=== PATIENT | female | born 1975 | race African-American/Black ===

== ENCOUNTER 2016-07-02 03:23 | Emergency (ER) | payer OTHER ==
[~2016-07-02] VITALS: Ht 185.4 cm; Wt 163.0 kg
[~2016-07-02 03:23] MED LIST: ALBU8.5H3 INH; ARIP5TAB7 PO; ASPI-664 PO; BENA20TA48 PO; BISA-57 PO; CIPR500T4 PO; CYCL-319 PO; DOCU-144 PO; INSU100V23 SC; LANT3I SC; LEVE-5 PO; MIRT30TA5 PO; OMEP40CA6 PO; PHEN100C PO; SIMV20TA2 PO; WARF4TAB PO
[2016-07-02 03:28] VITALS: Ht 185.4 cm; Wt 163.0 kg
--- NOTE | 2016-07-02 03:55 | ERD ---
ER Documentation Chief Complaint Date/Time DATE: 07/02/16 TIME: 03:52 Chief Complaint bib ra 90 skin tear from diaper sticky tab. from home. HPI 40-year-old female with a history of multiple sclerosis presenting with pain of the skin of her left lower quadrant. She states that she was wearing a diaper and the sticky part was stuck to her skin. She reported off and it tore the skin with it. After that she has been having burning pain in that area. The pain is superficial, nonradiating, 9 out of 10. She denies any other trauma to the area. She has no fever or chills. ROS All systems reviewed and are negative except as per history of present illness. Medications Home Meds Active Scripts Ciprofloxacin Hcl* (Ciprofloxacin Hcl*) 500 Mg Tablet, 500 MG PO BID for 10 Days , TAB Prov:BRITTNEY ROGERS 09/02/15 Levetiracetam* (Keppra*) 500 Mg Tablet, 500 MG PO BID for 28 Days, TAB Prov:MONA HARRIS MD 08/01/15 Insulin Glargine* (Lantus*) 100 Unit/Ml Soln, 10 UNIT SC HS for 28 Days, #1 VIAL Prov:MONA HARRIS MD 08/01/15 Docusate Sodium* (Colace*) 100 Mg Cap, 100 MG PO TID, #60 TAB Prov:GLADYS GONZALEZ MD 01/25/14 Bisacodyl* (Dulcolax*) 5 Mg Tabec, 10 MG PO BID, #60 TAB Prov:GLADYS GONZALEZ MD 01/25/14 Reported Medications Warfarin Sodium* (Coumadin*) 4 Mg Tablet, 8 MG PO DAILY, TAB 01/18/15 Albuterol Sulfate* (Proair HFA*) 8.5 Gm Hfa.aer.ad, 2 PUFF INH Q6H Y for WHEEZING AND SOB, INH 12/12/14 Omeprazole* (Omeprazole*) 40 Mg Capsule.dr, 40 MG PO DAILY, CAP 12/12/14 Simvastatin (Simvastatin) 20 Mg Tablet, 20 MG PO HS, TAB 12/12/14 Benazepril Hcl* (Benazepril Hcl*) 20 Mg Tablet, 20 MG PO DAILY, TAB 12/12/14 Cyclobenzaprine Hcl* (Cyclobenzaprine Hcl*) 10 Mg Tablet, 10 MG PO DAILY, TAB 01/10/14 Insulin Regular, Human* (Novolin R*) 100 U/Ml Vial, 0 SC SLIDING SCALE AC, VIAL 01/10/14 Aripiprazole* (Abilify*) 5 Mg Tab, 5 MG PO DAILY, TAB 01/10/14 Mirtazapine* (Mirtazapine*) 30 Mg Tablet, 30 MG PO DAILY, TAB 09/14/13 Phenytoin* Sodium Extended (Dilantin*) 100 Mg Capsule, 100 MG PO TID, CAP 09/09/13 Aspirin (Aspirin) 81 Mg Tablet.dr, 81 MG PO DAILY 11/04/12 Allergies Allergies: Coded Allergies: No Known Drug Allergy (Verified Allergy, Unknown, 07/30/15) PMhx/Soc History of Surgery: Yes (hysterectomy, knee surgery x 2 , hand surgery) Anesthesia Reaction: No Hx Neurological Disorder: Yes (seizure disorder) Hx Respiratory Disorders: No Hx Cardiac Disorders: Yes (htn, ) Hx Psychiatric Problems: Yes (depression, bipolar) Hx Miscellaneous Medical Probl: Yes (diabetes, MS) Hx Alcohol Use: No Hx Substance Use: No Hx Tobacco Use: No Smoking Status: Never smoker FmHx Family History: No diabetes Physical Exam Vitals Vital Signs Date Time Temp Pulse Resp B/P Pulse Ox O2 Delivery O2 Flow Rate FiO2 07/02/16 03:28 97.6 102 16 160/104 100 07/02/16 03:27 97.6 102 18 160/104 100 Physical Exam Const: Well-appearing, no distress Head: Atraumatic Eyes: Normal Conjunctiva ENT: Normal External Ears, Nose and Mouth. Neck: Full range of motion..~ No meningismus. Resp: Clear to auscultation bilaterally Cardio: Regular rate and rhythm, no murmurs Abd: Soft, non tender, non distended. Normal bowel sounds Skin: No petechiae or rashes. Superficial skin avulsion of the lateral left aspect of her hysterectomy scar with underlying fluctuant mass without any erythema or surrounding induration. Back: No midline or flank tenderness Ext: No cyanosis, or edema Neur: Awake and alert Psych: Normal Mood and Affect Results 24 hrs Current Medications Medications (Trade) Dose Ordered Sig/Nura Route PRN Reason Start Time Stop Time Status Last Admin Dose Admin Ibuprofen (Motrin) 600 mg ONCE ONCE PO 07/02/16 04:00 07/02/16 04:01 07/02/16 03:49 Procedures/MDM Patient is presenting with a skin avulsion due to adhesive tape. She was given ibuprofen for her pain. The wound was cleaned and dressed. With regard to the underlying mass that the patient has not noticed before, this may be a seroma versus a keloid. This does not look like an abscess. I doubt the fistula. However I asked the patient to follow-up with her primary care doctor within the next 2-3 days for reevaluation. She may need outpatient tests to further evaluate the mass. However this is not emergent and does not need to be done during this visit. Return precautions were given. Wound care was discussed. Patient is comfortable with the plan. She states she will call her doctor tomorrow Departure Diagnosis: Primary Impression: Avulsion of skin Condition: Stable Patient Instructions: Skin Avulsion Additional Instructions: Clean the area with soap and water twice daily. Place triple antibiotic ointment and cover with gauze. Keep the area dry otherwise. See your primary care doctor regarding the small skin mass around that area. BRITTNEE TORRES MD July 02, 2016 03:55
[2016-07-02] MEDS ORDERED: IBUPROFEN 600 MG TAB PO ONE (04:00)
[2016-07-02 04:21] VITALS: BP 147/97; PULSE 100; RESP 16; TEMP 98.6
== END 2016-07-02 04:20 | disposition home or self-care (01) ==
LOC: E/R 03:23
DX: T81.32XA Disruption of internal operation (surgical) wound, not elsewhere classified, initial encounter (principal); I10 Essential (primary) hypertension; E11.9 Type 2 diabetes mellitus without complications; Y82.8 Other medical devices associated with adverse incidents; Z79.01 Long term (current) use of anticoagulants; Z79.4 Long term (current) use of insulin; Z79.82 Long term (current) use of aspirin
CPT/HCPCS: Z7502; Z7610; 99282

== ENCOUNTER 2016-07-03 23:50 | Emergency (ER) | payer OTHER ==
[~2016-07-03] VITALS: Ht 185.4 cm; Wt 78.0 kg
[2016-07-04 00:04] VITALS: Ht 185.4 cm; Wt 78.0 kg
--- NOTE | 2016-07-04 01:06 | ERA ---
ER Documentation Chief Complaint Date/Time DATE: 07/04/16 TIME: 01:05 Chief Complaint Lower abdominal skin lesion HPI The patient is a 72-year-old female, presenting to the ER because of left lower quadrant lesion from the diaper tape yesterday. She was seen in the ER yesterday and discharged. She came back today because of minimal discharge from the skin lesion. She denies any trauma, fever, neck pain, chest pain, dyspnea. Past medical history: Hypertension, depression, seizure, bipolar, diabetes, MS Past surgical history: Hysterectomy ROS All systems reviewed and are negative except as per history of present illness. Medications Home Meds Active Scripts Clindamycin Hcl* (Clindamycin Hcl*) 300 Mg Capsule, 300 MG PO QID for 10 Days, CAP Prov:JOSUÉ JAMES MD 07/04/16 Ciprofloxacin Hcl* (Ciprofloxacin Hcl*) 500 Mg Tablet, 500 MG PO BID for 10 Days , TAB Prov:BRITTNEY ROGERS 09/02/15 Bisacodyl* (Dulcolax*) 5 Mg Tabec, 10 MG PO BID, #60 TAB Prov:GLADYS GONZALEZ MD 01/25/14 Reported Medications Warfarin Sodium* (Coumadin*) 4 Mg Tablet, 8 MG PO DAILY, TAB 01/18/15 Albuterol Sulfate* (Proair HFA*) 8.5 Gm Hfa.aer.ad, 2 PUFF INH Q6H Y for WHEEZING AND SOB, INH 12/12/14 Omeprazole* (Omeprazole*) 40 Mg Capsule.dr, 40 MG PO DAILY, CAP 12/12/14 Simvastatin (Simvastatin) 20 Mg Tablet, 20 MG PO HS, TAB 12/12/14 Benazepril Hcl* (Benazepril Hcl*) 20 Mg Tablet, 20 MG PO DAILY, TAB 12/12/14 Cyclobenzaprine Hcl* (Cyclobenzaprine Hcl*) 10 Mg Tablet, 10 MG PO DAILY, TAB 01/10/14 Insulin Regular, Human* (Novolin R*) 100 U/Ml Vial, 0 SC SLIDING SCALE AC, VIAL 01/10/14 Aripiprazole* (Abilify*) 5 Mg Tab, 5 MG PO DAILY, TAB 01/10/14 Mirtazapine* (Mirtazapine*) 30 Mg Tablet, 30 MG PO DAILY, TAB 09/14/13 Phenytoin* Sodium Extended (Dilantin*) 100 Mg Capsule, 100 MG PO TID, CAP 09/09/13 Aspirin (Aspirin) 81 Mg Tablet.dr, 81 MG PO DAILY 11/04/12 Discontinued Scripts Levetiracetam* (Keppra*) 500 Mg Tablet, 500 MG PO BID for 28 Days, TAB Prov:MONA HARRIS MD 08/01/15 Insulin Glargine* (Lantus*) 100 Unit/Ml Soln, 10 UNIT SC HS for 28 Days, #1 VIAL Prov:MONA HARRIS MD 08/01/15 Docusate Sodium* (Colace*) 100 Mg Cap, 100 MG PO TID, #60 TAB Prov:GLADYS GONZALEZ MD 01/25/14 Allergies Allergies: Coded Allergies: No Known Drug Allergy (Verified Allergy, Unknown, 07/30/15) PMhx/Soc History of Surgery: Yes (hysterectomy, knee surgery x 2 , hand surgery) Anesthesia Reaction: No Hx Neurological Disorder: Yes (seizure disorder) Hx Respiratory Disorders: No Hx Cardiac Disorders: Yes (htn, ) Hx Psychiatric Problems: Yes (depression, bipolar) Hx Miscellaneous Medical Probl: Yes (diabetes, MS) Hx Alcohol Use: No Hx Substance Use: No Hx Tobacco Use: No Smoking Status: Never smoker Physical Exam Vitals Vital Signs Date Time Temp Pulse Resp B/P Pulse Ox O2 Delivery O2 Flow Rate FiO2 07/04/16 00:04 97.9 102 18 131/91 100 07/03/16 23:55 101 18 131/91 100 Room Air Physical Exam Const: No acute distress. Head: Atraumatic. Eyes: Normal Conjunctiva. ENT: Normal External Ears, Nose and Mouth. Neck: Full range of motion. No meningismus. Resp: Clear to auscultation bilaterally. Cardio: Regular rate and rhythm, no murmurs. Abd: Soft, non distended, normal bowel sounds, non tender. Skin: No petechiae or rashes. Back: No midline or flank tenderness. Ext: No cyanosis, or edema. A small skin lesion at the left lower quadrant abdomen, minimal discharge with surrounding erythema Psych: Normal Mood and Affect. Procedures/MDM MEDICAL MAKING DECISION: The patient is a 40-year-old female, presenting with abdominal wall cellulitis, is stable for outpatient follow-up. The differential diagnoses considered include but are not limited to cellulitis , abscess Departure Diagnosis: Primary Impression: Cellulitis Condition: Good Comments She was discharged with clindamycin I discussed the findings with the patient. I advised the patient to follow-up with the primary physician in about 2-3 days, sooner if needed and return if any concern. JOSUÉ JAMES MD July 04, 2016 01:06
[2016-07-04] MEDS ORDERED: CLIN-73 PO (01:43)
[2016-07-04 02:01] VITALS: BP 113/77; PULSE 95; RESP 18; TEMP 97.9
== END 2016-07-04 01:44 | disposition home or self-care (01) ==
LOC: E/R 23:50
DX: L03.311 Cellulitis of abdominal wall (principal); I10 Essential (primary) hypertension; E11.9 Type 2 diabetes mellitus without complications; Z79.4 Long term (current) use of insulin; Z79.01 Long term (current) use of anticoagulants; Z79.82 Long term (current) use of aspirin
CPT/HCPCS: 99283

== ENCOUNTER 2016-11-30 12:35 | Inpatient (IN) | payer OTHER ==
[~2016-11-30] VITALS: Ht 185.4 cm; Wt 54.5 kg
[~2016-11-30 12:35] MED LIST changes: +CLIN-73 PO; -DOCU-144 PO; -LANT3I SC; -LEVE-5 PO
[2016-11-30 14:00] VITALS: BP 110/71; PULSE 101; RESP 18
[2016-11-30] MEDS ORDERED: DEXTROSE 5%-0.9% NACL 1,000 ML IV SCH (15:00)
[2016-11-30 15:13] LABS: BASOPHILS % 0.4 % (0.0-2.0); EOSINOPHILS % 0.5 % (0.0-7.0); HEMATOCRIT 32.2 % (37.0-47.0); HEMOGLOBIN 10.2 g/dl (12.0-16.0); LYMPHOCYTES # 1.1 10^3/ul (0.8-2.9); LYMPHOCYTES % 14.3 % (15.0-51.0); MEAN CORPUSCULAR HGB CONC 31.7 g/dl (32.0-37.0); MEAN CORPUSCULAR VOLUME 81.9 fl (82.0-101.0); MEAN PLATELET VOLUME 11.4 fl (7.4-10.4); MONOCYTE # 0.6 10^3/ul (0.3-0.9); MONOCYTES % 8.3 % (0.0-11.0); NEUTROPHIL # 5.8 10^3/ul (1.6-7.5); NEUTROPHILS % 75.8 % (39.0-77.0); PLATELET COUNT 301 10^3/UL (140-415); RED BLOOD COUNT 3.93 10^6/ul (4.20-5.40); RED CELL DISTRIBUTION WIDTH 12.9 % (11.5-14.5); WHITE BLOOD COUNT 7.6 10^3/ul (4.8-10.8)
[2016-11-30 15:29] LABS: CREATININE 1.39 mg/dl (0.44-1.00); POTASSIUM 4.9 mmol/L (3.5-5.1)
[2016-11-30] MEDS: SOD CHLORIDE 0.9% 1,000 ML IV SCH (15:52)
[2016-11-30] MEDS ORDERED: GLUCAGON 1 MG INJ IM PRN (16:00)
[2016-11-30] MEDS ORDERED: GLUCOSE GEL 15 GRAM TUBE PO PRN ×2 (16:00)
[2016-11-30] MEDS ORDERED: GLUCOSE GEL 15 GRAM TUBE BUCCAL PRN (16:00)
[2016-11-30] MEDS ORDERED: DEXTROSE 50% 50 ML SYRINGE IV PRN ×2 (16:00)
[2016-11-30] MEDS ORDERED: LIDOCAINE 1% (MPF) 5 ML VIAL SC ONE (17:00)
[2016-11-30] MEDS ORDERED: PANTOPRAZOLE 40 MG INJ IV SCH (17:00)
[2016-11-30] MEDS: INSULIN ASPART [NOVOLOG] 3 ML PEN SC SCH ×2 (18:49→21:08)
[2016-11-30] MEDS: morphine 2 MG INJ IV PRN ×2 (18:52→23:09)
[2016-11-30 19:20] VITALS: BP 145/93; RESP 18
[2016-11-30] MEDS ORDERED: SOD CHLORIDE 0.9% 100 ML ONE (19:20)
--- NOTE | 2016-11-30 19:39 | RADRPT ---
PROCEDURE: US guidance for PICC line CLINICAL INDICATION: PICC line placement TECHNIQUE: Multiple real-time images were acquired of the patient's arm utilizing a high resolutio n transducer. This was performed by the PICC line nurse for venous access. COMPARISON: None FINDINGS: Ultrasound guidance for PICC line placement. IMPRESSION: Ultrasound guidance for PICC line placement. RPTAT: AA .Alejandro Goldstein MD, MD Date Time Electronically viewed and signed by .Alejandro Goldstein MD, on 11/30/2016 19:38 .S/
--- NOTE | 2016-11-30 19:40 | RADRPT ---
PROCEDURE: XR Chest. CLINICAL INDICATION: PICC line placement TECHNIQUE: Single frontal view of the chest was obtained COMPARISON: 09/02/2015 FINDINGS: There is a new left-sided PICC line in place with its tip overlying the cavoatrial junction. The heart is normal in size. The lungs are clear. There is no pleural effusion or pneumothorax. RPTAT: AA IMPRESSION: New PICC line in appropriate position. .Alejandro Goldstein MD, MD Date Time Electronically viewed and signed by .Alejandro Goldstein MD, on 11/30/2016 19:39 .S/
--- NOTE | 2016-11-30 20:37 | QN ---
Documentation Comment [id number] MONA HARRIS MD Nov 30, 2016 20:36
[2016-11-30] MEDS: FAMOTIDINE 20 MG INJ IV SCH (21:04)
[2016-11-30] MEDS: PHENYTOIN 100 MG CAP PO SCH (21:04)
[2016-11-30] MEDS ORDERED: GABAPENTIN 100 MG CAP ONE (23:43)
[2016-11-30] MEDS: ZOLPIDEM 5 MG TAB PO PRN (23:45)
[2016-11-30] MEDS: GABAPENTIN 100 MG CAP PO SCH (23:45)
[2016-12-01 01:30] VITALS: BP 154/89; RESP 18
[2016-12-01 01:40] VITALS: BP 145/70; PULSE 85; RESP 18
[2016-12-01] MEDS: ACETAMINOPHEN 325 MG TAB PO PRN (01:40)
[2016-12-01] MEDS: morphine 2 MG INJ IV PRN ×6 (01:46→22:04)
--- NOTE | 2016-12-01 02:10 | HP ---
DATE OF ADMISSION: 11/30/2016 HISTORY OF PRESENT ILLNESS: Patient is a 41-year-old female who has a history of seizure disorder d ue to noncompliance, hyperglycemia, anemia, history of multiple sclerosis, hypertension, dyslipidemi a, history of wheelchair bound, history of DVT, history of left middle finger cellulitis, history of hypertension. Patient, at home, was on Coumadin, Keppra, Dilantin, Lantus. The patient now presen ts with poor p.o. intake and on and off abdominal pain. Denies any diarrhea or fever at this point. PAST MEDICAL HISTORY: As enumerated before. Multiple sclerosis, history of diabetes mellitus, hype rtension, dyslipidemia, wheelchair bound, history of DVT. ALLERGY HISTORY: NEGATIVE. FAMILY HISTORY: Negative. SOCIAL HISTORY: Negative right now. MEDICATION HISTORY: Patient is on: 1. Albuterol. 2. Abilify. 3. Aspirin. 4. Benazepril. 5. Bisacodyl. 6. Cipro. 7. Clindamycin. 8. Cyclobenzaprine. 9. Insulin. 10. Mirtazapine. 11. Omeprazole. 12. Dilantin. 13. Simvastatin. 14. Coumadin. REVIEW OF SYSTEMS: HEENT: Unremarkable. RESPIRATORY: Unremarkable. CARDIOVASCULAR: Unremarkable. ABDOMEN: As mentioned above. EXTREMITIES: Unremarkable. CENTRAL NERVOUS SYSTEM: Unremarkable. PHYSICAL EXAMINATION: GENERAL: The patient is awake, alert. VITALS: Stable. HEAD: Atraumatic, normocephalic. Pupils equal, reactive to light. NECK: Supple. No JVD. LUNGS: Clear. CARDIOVASCULAR: S1, S2 normal. ABDOMEN: Soft, nontender. Bowel sounds present. No palpable mass. EXTREMITIES: No cyanosis, clubbing or edema. CENTRAL NERVOUS SYSTEM: The patient is awake, alert. The patient has mild weakness of both upper a nd lower extremities. LABORATORY DATA: Hematocrit 32.2, sodium 133. IMPRESSION: 1. Poor p.o. intake. 2. Abdominal pain. 3. Hyponatremia. 4. Acute kidney injury. 5. Anemia. PLAN: Continue sliding scale, diabetic diet, IV fluid. Continue home medication. Orders were done . Dictated By: MONA ROBERTSON/BENJIE Conf#: [id number] DID#: [id number]
[2016-12-01] MEDS: ACCU-CHEK XX SCH (02:26)
[2016-12-01 08:31] VITALS: BP 121/78; RESP 16
[2016-12-01] MEDS: BISACODYL (EC) 5 MG TAB PO SCH ×2 (09:00→20:21)
[2016-12-01] MEDS: SOD CHLORIDE 0.9% 1,000 ML IV SCH ×2 (09:02→22:04)
[2016-12-01] MEDS: FAMOTIDINE 20 MG INJ IV SCH ×2 (09:03→20:22)
[2016-12-01] MEDS: PHENYTOIN 100 MG CAP PO SCH ×3 (09:03→20:22)
[2016-12-01] MEDS: SERTRALINE 50 MG TAB PO SCH (09:03)
[2016-12-01] MEDS: INSULIN ASPART [NOVOLOG] 3 ML PEN SC SCH ×4 (09:22→21:00)
[2016-12-01] MEDS: ASPIRIN (EC) 81 MG TAB PO SCH (09:35)
[2016-12-01] MEDS: MIRTAZAPINE 15 MG TAB PO SCH (09:36)
[2016-12-01] MEDS: CYCLOBENZAPRINE 10 MG TAB PO SCH (09:36)
[2016-12-01] MEDS: ARIPIPRAZOLE 5 MG TAB PO SCH (09:36)
[2016-12-01 09:51] LABS: INR 1.14; PROTIME 14.6 Sec (12.2-14.2); PT RATIO 1.1
[2016-12-01] MEDS ORDERED: ALBUTEROL 18 GM INHALER INH PRN (10:00)
[2016-12-01 16:15] VITALS: BP 132/85; RESP 20
[2016-12-01 18:05] VITALS: Ht 185.4 cm; Wt 54.5 kg
--- NOTE | 2016-12-01 18:06 | PN ---
Date/Time of Note Date/Time of Note DATE: 12/01/16 TIME: 18:04 Assessment/Plan VTE Prophylaxis VTE Prophylaxis Intervention: other Lines/Catheters IV Catheter Type (from Nrsg): PICC Line Central line still needed: Yes Urinary Cath still in place: No Assessment/Plan Chief Complaint/Hosp Course IMPRESSION: 1. Poor p.o. intake. 2. Abdominal pain. 3. Hyponatremia. 4. Acute kidney injury. 5. Anemia. 6 HX DVT PLAN CK LABS Problems: Subjective 24 Hr Interval Summary Respiratory: no complaints Gastrointestinal: decreased appetite Exam/Review of Systems Vital Signs Vitals Vital Signs Date Time Temp Pulse Resp B/P Pulse Ox O2 Delivery O2 Flow Rate FiO2 12/01/16 16:15 98.4 97 20 132/85 98 12/01/16 01:40 Room Air Intake and Output 11/30/16 11/30/16 12/01/16 15:00 23:00 07:00 Intake Total 315 ml 420 ml Balance 315 ml 420 ml Exam Neck: supple Respiratory: clear to auscultation Cardiovascular: regular rate and rhythm Gastrointestinal: soft Musculoskeletal: nl extremities to inspection Results Result Diagram: 11/30/16 1501 11/30/16 1501 Results 24 hrs Laboratory Tests Test 11/30/16 21:02 12/01/16 01:42 12/01/16 08:27 12/01/16 09:19 Bedside Glucose 285 H 205 189 Prothrombin Time 14.6 H Prothrombin Time Ratio 1.1 INR International Normalized Ratio 1.14 Test 12/01/16 12:38 12/01/16 14:19 12/01/16 17:29 Bedside Glucose 236 H 231 H Hemoglobin A1c 9.0 H Medications Medications Current Medications Influenza Virus Vaccine (Fluzone) 0.5 ml ONCE ONCE IM* ; Start 12/02/16 at 09: 00; Stop 12/02/16 at 09:01 Acetaminophen 650 mg 650 mg Q6H PRN PO PAIN AND OR ELEVATED TEMP Last administered on 12/01/16 01:40; Admin Dose 650 MG; Start 11/30/16 at 15:00 Sodium Chloride (NS) 1,000 ml @ 75 mls/hr [id number] IV Last administered on 09:02; Admin Dose 75 MLS/HR; Start 11/30/16 at 16:00 Insulin Glargine (Lantus) 20 unit HS SC ; Start 12/01/16 at 21:00 Diagnostic Test (Pha) (Accu-Chek) 1 ea 02 XX Last administered on 12/01/16 02 :26; Admin Dose 1 EA; Start 12/01/16 at 02:00 Phenytoin (Dilantin) 100 mg TID PO Last administered on 12/01/16 13:13; Admin Dose 100 MG; Start 11/30/16 at 21:00 Miscellaneous Information 1 ea NOTE XX ; Start 11/30/16 at 16:00 Glucose (Glutose) 15 gm Q15M PRN PO DECREASED GLUCOSE; Start 11/30/16 at 16:00 Glucose (Glutose) 22.5 gm Q15M PRN PO DECREASED GLUCOSE; Start 11/30/16 at 16: 00 Dextrose (D50w Syringe) 25 ml Q15M PRN IV DECREASED GLUCOSE; Start 11/30/16 at 16:00 Dextrose (D50w Syringe) 50 ml Q15M PRN IV DECREASED GLUCOSE; Start 11/30/16 at 16:00 Glucagon (Glucagen) 1 mg Q15M PRN IM DECREASED GLUCOSE; Start 11/30/16 at 16:00 Glucose (Glutose) 15 gm Q15M PRN BUCCAL DECREASED GLUCOSE; Start 11/30/16 at 16 :00 Morphine Sulfate (morphine) 2 mg Q4H PRN IV PAIN LEVEL 4-7 Last administered on 12/01/16 17:31; Admin Dose 2 MG; Start 11/30/16 at 16:00 Famotidine (Pepcid Iv) 20 mg BID IV Last administered on 12/01/16 09:03; Admin Dose 20 MG; Start 11/30/16 at 21:00 IV Flush (NS 10 ml) 10 ml PRN PRN IV IV PROTOCOL; Start 11/30/16 at 19:30 Sertraline HCl (Zoloft) 25 mg DAILY PO Last administered on 12/01/16 09:03; Admin Dose 25 MG; Start 12/01/16 at 09:00 Gabapentin (Neurontin) 200 mg HS PO Last administered on 11/30/16 23:45; Admin Dose 200 MG; Start 12/01/16 at 21:00 Aripiprazole (Abilify) 5 mg DAILY PO Last administered on 12/01/16 09:36; Admin Dose 5 MG; Start 12/01/16 at 09:00 Aspirin (Halfprin) 81 mg DAILY PO Last administered on 12/01/16 09:35; Admin Dose 81 MG; Start 12/01/16 at 09:00 Bisacodyl (Dulcolax) 10 mg BID PO ; Start 12/01/16 at 09:00 Cyclobenzaprine HCl (Flexeril) 10 mg DAILY PO Last administered on 12/01/16 09:36; Admin Dose 10 MG; Start 12/01/16 at 09:00 Mirtazapine (Remeron) 30 mg DAILY PO Last administered on 12/01/16 09:36; Admin Dose 30 MG; Start 12/01/16 at 09:00 MONA HARRIS MD Dec 01, 2016 18:06
[2016-12-01] MEDS: GABAPENTIN 100 MG CAP PO SCH (20:21)
[2016-12-01] MEDS: INSULIN GLARGINE [LANtus] 3 ML PEN SC SCH (20:25)
[2016-12-01 22:10] VITALS: BP 150/84; RESP 20
[2016-12-02 02:00] VITALS: BP 143/78; RESP 20
[2016-12-02] MEDS: ACCU-CHEK XX SCH (02:00)
[2016-12-02] MEDS: morphine 2 MG INJ IV PRN ×4 (04:42→20:09)
[2016-12-02 06:33] LABS: ALBUMIN 2.6 g/dl (3.3-4.9); ALBUMIN/GLOBULIN RATIO 0.68; CALCIUM 7.9 mg/dl (8.4-10.2); CREATININE 0.88 mg/dl (0.44-1.00); POTASSIUM 3.8 mmol/L (3.5-5.1); TOTAL PROTEIN 6.4 g/dl (6.1-8.1)
[2016-12-02 07:00] VITALS: BP 119/73; RESP 18
[2016-12-02] MEDS: INSULIN ASPART [NOVOLOG] 3 ML PEN SC SCH ×4 (07:50→21:00)
[2016-12-02] MEDS: SERTRALINE 50 MG TAB PO SCH (08:31)
[2016-12-02] MEDS: PHENYTOIN 100 MG CAP PO SCH ×3 (08:31→21:26)
[2016-12-02] MEDS: CYCLOBENZAPRINE 10 MG TAB PO SCH (08:31)
[2016-12-02] MEDS: ASPIRIN (EC) 81 MG TAB PO SCH (08:31)
[2016-12-02] MEDS: ARIPIPRAZOLE 5 MG TAB PO SCH (08:32)
[2016-12-02] MEDS: MIRTAZAPINE 15 MG TAB PO SCH (08:32)
[2016-12-02] MEDS: BISACODYL (EC) 5 MG TAB PO SCH ×2 (09:00→21:00)
[2016-12-02] MEDS ORDERED: INFLUENZA VIRUS VACCINE 0.5 ML SYG IM* ONE (09:00)
[2016-12-02] MEDS: ENOXAPARIN 40 MG/0.4 ML SYG SC SCH (09:25)
[2016-12-02] MEDS: FAMOTIDINE 20 MG INJ IV SCH (10:21)
[2016-12-02] MEDS: SOD CHLORIDE 0.9% 1,000 ML IV SCH (12:23)
[2016-12-02 14:00] VITALS: BP 119/82; RESP 20
--- NOTE | 2016-12-02 20:30 | PN ---
Date/Time of Note Date/Time of Note DATE: 12/02/16 TIME: 20:29 Assessment/Plan VTE Prophylaxis VTE Prophylaxis Intervention: other Lines/Catheters IV Catheter Type (from Nrs): PICC Line Central line still needed: Yes Urinary Cath still in place: No Assessment/Plan Chief Complaint/Hosp Course IMPRESSION: 1. Poor p.o. intake.BETTER 2. Abdominal pain.BETTER 3. Hyponatremia. 4. Acute kidney injury.BETTER 5. Anemia. 6 HX DVT PLAN IV FLUID PT OT Problems: Subjective 24 Hr Interval Summary Respiratory: no complaints Cardiovascular: no complaints Neurologic: other (WEAKNESS=) Exam/Review of Systems Vital Signs Vitals Vital Signs Date Time Temp Pulse Resp B/P Pulse Ox O2 Delivery O2 Flow Rate FiO2 12/02/16 14:00 99.2 93 20 119/82 98 12/01/16 01:40 Room Air Intake and Output 12/01/16 12/01/16 12/02/16 15:00 23:00 07:00 Intake Total 1440 ml 1100 ml Output Total 800 ml Balance 1440 ml 300 ml Exam Neck: supple Respiratory: clear to auscultation Cardiovascular: regular rate and rhythm Gastrointestinal: bowel sounds (+), soft Neurological: other (NO CHANGE) Results Result Diagram: 11/30/16 1501 12/02/16 0511 Results 24 hrs Laboratory Tests Test 12/02/16 05:11 12/02/16 08:26 12/02/16 09:07 12/02/16 12:26 Sodium Level 144 Potassium Level 3.8 Chloride Level 113 H Carbon Dioxide Level 25 Anion Gap 10 # Blood Urea Nitrogen 20 Creatinine 0.88 Glucose Level 64 #L Calcium Level 7.9 L Total Bilirubin 0.0 L Direct Bilirubin 0.00 Indirect Bilirubin 0.0 Aspartate Amino Transf (AST/SGOT) 14 L Alanine Aminotransferase (ALT/SGPT) 27 Alkaline Phosphatase 162 H Total Protein 6.4 Albumin 2.6 L Globulin 3.80 H Albumin/Globulin Ratio 0.68 Bedside Glucose 59 L 109 82 Test 12/02/16 17:45 Bedside Glucose 96 Medications Medications Current Medications Acetaminophen 650 mg 650 mg Q6H PRN PO PAIN AND OR ELEVATED TEMP Last administered on 12/01/16t 01:40; Admin Dose 650 MG; Start 11/30/16 at 15:00 Sodium Chloride (NS) 1,000 ml @ 75 mls/hr [id number] IV Last administered on 12:23; Admin Dose 75 MLS/HR; Start 11/30/16 at 16:00 Insulin Glargine (Lantus) 20 unit HS SC Last administered on 12/01/16 20:25; Admin Dose 20 UNIT; Start 12/01/16 at 21:00 Diagnostic Test (Pha) (Accu-Chek) 1 ea 02 XX Last administered on 12/01/16 02 :26; Admin Dose 1 EA; Start 12/01/16 at 02:00 Phenytoin (Dilantin) 100 mg TID PO Last administered on 12/02/16 14:24; Admin Dose 100 MG; Start 11/30/16 at 21:00 Miscellaneous Information 1 ea NOTE XX ; Start 11/30/16 at 16:00 Glucose (Glutose) 15 gm Q15M PRN PO DECREASED GLUCOSE; Start 11/30/16 at 16:00 Glucose (Glutose) 22.5 gm Q15M PRN PO DECREASED GLUCOSE; Start 11/30/16 at 16: 00 Dextrose (D50w Syringe) 25 ml Q15M PRN IV DECREASED GLUCOSE; Start 11/30/16 at 16:00 Dextrose (D50w Syringe) 50 ml Q15M PRN IV DECREASED GLUCOSE; Start 11/30/16 at 16:00 Glucagon (Glucagen) 1 mg Q15M PRN IM DECREASED GLUCOSE; Start 11/30/16 at 16:00 Glucose (Glutose) 15 gm Q15M PRN BUCCAL DECREASED GLUCOSE; Start 11/30/16 at 16 :00 Morphine Sulfate (morphine) 2 mg Q4H PRN IV PAIN LEVEL 4-7 Last administered on 12/02/16 20:09; Admin Dose 2 MG; Start 11/30/16 at 16:00 IV Flush (NS 10 ml) 10 ml PRN PRN IV IV PROTOCOL; Start 11/30/16 at 19:30 Sertraline HCl (Zoloft) 25 mg DAILY PO Last administered on 12/02/16 08:31; Admin Dose 25 MG; Start 12/01/16 at 09:00 Gabapentin (Neurontin) 200 mg HS PO Last administered on 12/01/16 20:21; Admin Dose 200 MG; Start 12/01/16 at 21:00 Aripiprazole (Abilify) 5 mg DAILY PO Last administered on 12/02/16 08:32; Admin Dose 5 MG; Start 12/01/16 at 09:00 Aspirin (Halfprin) 81 mg DAILY PO Last administered on 12/02/16 08:31; Admin Dose 81 MG; Start 12/01/16 at 09:00 Bisacodyl (Dulcolax) 10 mg BID PO Last administered on 12/01/16 20:21; Admin Dose 10 MG; Start 12/01/16 at 09:00 Cyclobenzaprine HCl (Flexeril) 10 mg DAILY PO Last administered on 12/02/16 08:31; Admin Dose 10 MG; Start 12/01/16 at 09:00 Mirtazapine (Remeron) 30 mg DAILY PO Last administered on 12/02/16 08:32; Admin Dose 30 MG; Start 12/01/16 at 09:00 Enoxaparin Sodium (Lovenox) 40 mg DAILY SC Last administered on 12/02/16 09: 25; Admin Dose 40 MG; Start 12/02/16 at 09:00 Pantoprazole (Protonix Tab) 40 mg DAILY@06 PO ; Start 12/03/16 at 06:00 MONA HARRIS MD Dec 02, 2016 20:30
[2016-12-02 20:45] VITALS: BP 145/87; RESP 20
[2016-12-02] MEDS: GABAPENTIN 100 MG CAP PO SCH (21:26)
[2016-12-02] MEDS: INSULIN GLARGINE [LANtus] 3 ML PEN SC SCH (21:32)
[2016-12-03] MEDS: morphine 2 MG INJ IV PRN ×7 (00:03→22:31)
[2016-12-03] MEDS: SOD CHLORIDE 0.9% 1,000 ML IV SCH ×2 (00:05→13:06)
[2016-12-03] MEDS: ACCU-CHEK XX SCH (02:00)
[2016-12-03 02:10] VITALS: BP 142/92; RESP 18
[2016-12-03] MEDS: PANTOPRAZOLE (EC) 40 MG TAB PO SCH (06:04)
[2016-12-03] MEDS: INSULIN ASPART [NOVOLOG] 3 ML PEN SC SCH ×4 (07:50→21:00)
[2016-12-03 08:12] VITALS: BP 124/80; RESP 18
[2016-12-03] MEDS: BISACODYL (EC) 5 MG TAB PO SCH ×2 (09:00→20:44)
[2016-12-03] MEDS: CYCLOBENZAPRINE 10 MG TAB PO SCH (09:30)
[2016-12-03] MEDS: ARIPIPRAZOLE 5 MG TAB PO SCH (09:31)
[2016-12-03] MEDS: ASPIRIN (EC) 81 MG TAB PO SCH (09:32)
[2016-12-03] MEDS: PHENYTOIN 100 MG CAP PO SCH ×3 (09:33→20:32)
[2016-12-03] MEDS: SERTRALINE 50 MG TAB PO SCH (09:33)
[2016-12-03] MEDS: MIRTAZAPINE 15 MG TAB PO SCH (09:33)
[2016-12-03] MEDS: ENOXAPARIN 40 MG/0.4 ML SYG SC SCH (09:37)
[2016-12-03 14:36] VITALS: BP 110/76; RESP 18
--- NOTE | 2016-12-03 17:47 | PN ---
Date/Time of Note Date/Time of Note DATE: 12/03/16 TIME: 17:46 Assessment/Plan VTE Prophylaxis VTE Prophylaxis Intervention: other Lines/Catheters IV Catheter Type (from Nrs): PICC Line Central line still needed: Yes Urinary Cath still in place: Yes Reason Cath still needed: other (indicate) Assessment/Plan Chief Complaint/Hosp Course IMPRESSION: 1. Poor p.o. intake.BETTER 2. Abdominal pain.BETTER 3. Hyponatremia. 4. Acute kidney injury.BETTER 5. Anemia. 6 HX DVT PLAN IV FLUID PT OT home soon Problems: Subjective 24 Hr Interval Summary Cardiovascular: no complaints Gastrointestinal: no complaints Exam/Review of Systems Vital Signs Vitals Vital Signs Date Time Temp Pulse Resp B/P Pulse Ox O2 Delivery O2 Flow Rate FiO2 12/03/16 14:36 98.0 90 18 110/76 100 12/01/16 01:40 Room Air Intake and Output 12/02/16 12/02/16 12/03/16 15:00 23:00 07:00 Intake Total 1690 ml 1350 ml Balance 1690 ml 1350 ml Exam Respiratory: clear to auscultation Cardiovascular: regular rate and rhythm Gastrointestinal: soft Musculoskeletal: nl extremities to inspection Extremities: normal pulses Results Result Diagram: 11/30/16 1501 12/02/16 0511 Results 24 hrs Laboratory Tests Test 12/02/16 21:25 12/03/16 08:19 12/03/16 08:36 12/03/16 09:24 Bedside Glucose 114 61 L 64 L 158 Test 12/03/16 13:01 12/03/16 17:37 Bedside Glucose 106 144 Medications Medications Current Medications Acetaminophen 650 mg 650 mg Q6H PRN PO PAIN AND OR ELEVATED TEMP Last administered on 12/01/16 01:40; Admin Dose 650 MG; Start 11/30/16 at 15:00 Sodium Chloride (NS) 1,000 ml @ 75 mls/hr [id number] IV Last administered on 13:06; Admin Dose 75 MLS/HR; Start 11/30/16 at 16:00 Diagnostic Test (Pha) (Accu-Chek) 1 ea 02 XX Last administered on 12/01/16 02 :26; Admin Dose 1 EA; Start 12/01/16 at 02:00 Phenytoin (Dilantin) 100 mg TID PO Last administered on 12/03/16 13:03; Admin Dose 100 MG; Start 11/30/16 at 21:00 Miscellaneous Information 1 ea NOTE XX ; Start 11/30/16 at 16:00 Glucose (Glutose) 15 gm Q15M PRN PO DECREASED GLUCOSE; Start 11/30/16 at 16:00 Glucose (Glutose) 22.5 gm Q15M PRN PO DECREASED GLUCOSE; Start 11/30/16 at 16: 00 Dextrose (D50w Syringe) 25 ml Q15M PRN IV DECREASED GLUCOSE; Start 11/30/16 at 16:00 Dextrose (D50w Syringe) 50 ml Q15M PRN IV DECREASED GLUCOSE; Start 11/30/16 at 16:00 Glucagon (Glucagen) 1 mg Q15M PRN IM DECREASED GLUCOSE; Start 11/30/16 at 16:00 Glucose (Glutose) 15 gm Q15M PRN BUCCAL DECREASED GLUCOSE; Start 11/30/16 at 16 :00 Morphine Sulfate (morphine) 2 mg Q4H PRN IV PAIN LEVEL 4-7 Last administered on 12/03/16 14:31; Admin Dose 2 MG; Start 11/30/16 at 16:00 IV Flush (NS 10 ml) 10 ml PRN PRN IV IV PROTOCOL; Start 11/30/16 at 19:30 Sertraline HCl (Zoloft) 25 mg DAILY PO Last administered on 12/03/16 09:33; Admin Dose 25 MG; Start 12/01/16 at 09:00 Gabapentin (Neurontin) 200 mg HS PO Last administered on 12/02/16 21:26; Admin Dose 200 MG; Start 12/01/16 at 21:00 Aripiprazole (Abilify) 5 mg DAILY PO Last administered on 12/03/16 09:31; Admin Dose 5 MG; Start 12/01/16 at 09:00 Aspirin (Halfprin) 81 mg DAILY PO Last administered on 12/03/16 09:32; Admin Dose 81 MG; Start 12/01/16 at 09:00 Bisacodyl (Dulcolax) 10 mg BID PO Last administered on 12/01/16 20:21; Admin Dose 10 MG; Start 12/01/16 at 09:00 Cyclobenzaprine HCl (Flexeril) 10 mg DAILY PO Last administered on 12/03/16 09:30; Admin Dose 10 MG; Start 12/01/16 at 09:00 Mirtazapine (Remeron) 30 mg DAILY PO Last administered on 12/03/16 09:33; Admin Dose 30 MG; Start 12/01/16 at 09:00 Enoxaparin Sodium (Lovenox) 40 mg DAILY SC Last administered on 12/03/16 09: 37; Admin Dose 40 MG; Start 12/02/16 at 09:00 Pantoprazole (Protonix Tab) 40 mg DAILY@06 PO Last administered on 12/03/16 06:04; Admin Dose 40 MG; Start 12/03/16 at 06:00 Insulin Glargine (Lantus) 10 unit HS SC ; Start 12/03/16 at 21:00 MONA HARRIS MD Dec 03, 2016 17:47
[2016-12-03 20:05] VITALS: BP 124/75; RESP 18
[2016-12-03] MEDS: GABAPENTIN 100 MG CAP PO SCH (20:33)
[2016-12-03] MEDS ORDERED: INSULIN GLARGINE [LANtus] 3 ML PEN SC SCH (21:00)
[2016-12-03] MEDS: ZOLPIDEM 5 MG TAB PO PRN (22:35)
[2016-12-04 02:00] VITALS: BP 141/90; RESP 18
[2016-12-04] MEDS: ACCU-CHEK XX SCH (02:42)
[2016-12-04] MEDS: morphine 2 MG INJ IV PRN ×6 (02:51→23:12)
[2016-12-04] MEDS: SOD CHLORIDE 0.9% 1,000 ML IV SCH ×3 (03:37→17:27)
[2016-12-04] MEDS: PANTOPRAZOLE (EC) 40 MG TAB PO SCH (06:19)
[2016-12-04 07:48] VITALS: BP 129/82; PULSE 105; RESP 16
[2016-12-04] MEDS: INSULIN ASPART [NOVOLOG] 3 ML PEN SC SCH ×4 (07:50→21:00)
[2016-12-04] MEDS: MIRTAZAPINE 15 MG TAB PO SCH (08:48)
[2016-12-04] MEDS: PHENYTOIN 100 MG CAP PO SCH ×3 (08:48→21:07)
[2016-12-04] MEDS: ARIPIPRAZOLE 5 MG TAB PO SCH (08:49)
[2016-12-04] MEDS: ASPIRIN (EC) 81 MG TAB PO SCH (08:49)
[2016-12-04] MEDS: CYCLOBENZAPRINE 10 MG TAB PO SCH (08:49)
[2016-12-04] MEDS: ENOXAPARIN 40 MG/0.4 ML SYG SC SCH (08:50)
[2016-12-04] MEDS: BISACODYL (EC) 5 MG TAB PO SCH ×2 (08:52→21:00)
[2016-12-04] MEDS: SERTRALINE 50 MG TAB PO SCH (08:52)
[2016-12-04] MEDS: INSULIN GLARGINE [LANtus] 3 ML PEN SC SCH (08:58)
[2016-12-04 11:00] VITALS: BP 134/84; PULSE 110
[2016-12-04] MEDS ORDERED: BARIUM SULF 2% 450 ML BTL (BERRY SMOOTHIE) PO SCH (13:30)
--- NOTE | 2016-12-04 13:45 | PDOCDIS ---
Discharge Instructions CONDITION Patient Condition: Stable HOME CARE INSTRUCTIONS: Special Diet: 1800 FAUSTO ACTIVITY: Activity Restrictions: Slowly Increase Activity FOLLOW UP/APPOINTMENTS Follow-up Plan f/u own pcp 1 wk see hmo asuncion or dr wu 2 wks MONA HARRIS MD Dec 04, 2016 13:45
[2016-12-04] MEDS ORDERED: LANT3I SC (13:48)
[2016-12-04] MEDS ORDERED: OMEP40CA6 PO (13:48)
[2016-12-04 14:00] VITALS: BP 142/88; RESP 18
--- NOTE | 2016-12-04 16:18 | PN ---
Date/Time of Note Date/Time of Note DATE: 12/04/16 TIME: 16:15 Assessment/Plan VTE Prophylaxis VTE Prophylaxis Intervention: other Lines/Catheters IV Catheter Type (from Nrs): PICC Line Central line still needed: Yes Urinary Cath still in place: No Assessment/Plan Chief Complaint/Hosp Course IMPRESSION: 1. Poor p.o. intake.BETTER 2. Abdominal pain.BETTER 3. Hyponatremia.better 4. Acute kidney injury.BETTER 5. Anemia. 6 HX DVT non compliance w meds PLAN PT OT home soon after seen by gi Problems: Subjective 24 Hr Interval Summary Subjective hx not possible: other (no diarrhea per r n per pt diarrhea,dr wu to see called) Cardiovascular: no complaints Gastrointestinal: no complaints Genitourinary: no complaints Exam/Review of Systems Vital Signs Vitals Vital Signs Date Time Temp Pulse Resp B/P Pulse Ox O2 Delivery O2 Flow Rate FiO2 12/04/16 14:00 98.9 107 18 142/88 99 12/01/16 01:40 Room Air Intake and Output 12/03/16 12/03/16 12/04/16 15:00 23:00 07:00 Intake Total 1800 ml 1340 ml Balance 1800 ml 1340 ml Exam Respiratory: clear to auscultation Cardiovascular: regular rate and rhythm Gastrointestinal: soft Musculoskeletal: nl extremities to inspection Extremities: No edema Results Result Diagram: 11/30/16 1501 12/02/16 0511 Results 24 hrs Laboratory Tests Test 12/03/16 17:37 12/03/16 20:31 12/04/16 01:47 12/04/16 02:12 Bedside Glucose 144 145 66 L 55 L Test 12/04/16 02:30 12/04/16 03:01 12/04/16 03:16 12/04/16 08:47 Bedside Glucose 55 L 99 116 132 Test 12/04/16 12:42 Bedside Glucose 116 Medications Medications Current Medications Acetaminophen 650 mg 650 mg Q6H PRN PO PAIN AND OR ELEVATED TEMP Last administered on 12/01/16 01:40; Admin Dose 650 MG; Start 11/30/16 at 15:00 Sodium Chloride (NS) 1,000 ml @ 75 mls/hr [id number] IV Last administered on 03:37; Admin Dose 75 MLS/HR; Start 11/30/16 at 16:00 Diagnostic Test (Pha) (Accu-Chek) 1 ea 02 XX Last administered on 12/04/16 02 :42; Admin Dose 1 EA; Start 12/01/16 at 02:00 Phenytoin (Dilantin) 100 mg TID PO Last administered on 12/04/16 12:42; Admin Dose 100 MG; Start 11/30/16 at 21:00 Miscellaneous Information 1 ea NOTE XX ; Start 11/30/16 at 16:00 Glucose (Glutose) 15 gm Q15M PRN PO DECREASED GLUCOSE; Start 11/30/16 at 16:00 Glucose (Glutose) 22.5 gm Q15M PRN PO DECREASED GLUCOSE; Start 11/30/16 at 16: 00 Dextrose (D50w Syringe) 25 ml Q15M PRN IV DECREASED GLUCOSE; Start 11/30/16 at 16:00 Dextrose (D50w Syringe) 50 ml Q15M PRN IV DECREASED GLUCOSE; Start 11/30/16 at 16:00 Glucagon (Glucagen) 1 mg Q15M PRN IM DECREASED GLUCOSE; Start 11/30/16 at 16:00 Glucose (Glutose) 15 gm Q15M PRN BUCCAL DECREASED GLUCOSE Last administered on 12/04/16 02:37; Admin Dose 15 GM; Start 11/30/16 at 16:00 Morphine Sulfate (morphine) 2 mg Q4H PRN IV PAIN LEVEL 4-7 Last administered on 12/04/16 15:01; Admin Dose 2 MG; Start 11/30/16 at 16:00 IV Flush (NS 10 ml) 10 ml PRN PRN IV IV PROTOCOL; Start 11/30/16 at 19:30 Sertraline HCl (Zoloft) 25 mg DAILY PO Last administered on 12/04/16 08:52; Admin Dose 25 MG; Start 12/01/16 at 09:00 Gabapentin (Neurontin) 200 mg HS PO Last administered on 12/03/16 20:33; Admin Dose 200 MG; Start 12/01/16 at 21:00 Aripiprazole (Abilify) 5 mg DAILY PO Last administered on 12/04/16 08:49; Admin Dose 5 MG; Start 12/01/16 at 09:00 Aspirin (Halfprin) 81 mg DAILY PO Last administered on 12/04/16 08:49; Admin Dose 81 MG; Start 12/01/16 at 09:00 Bisacodyl (Dulcolax) 10 mg BID PO Last administered on 12/01/16 20:21; Admin Dose 10 MG; Start 12/01/16 at 09:00 Cyclobenzaprine HCl (Flexeril) 10 mg DAILY PO Last administered on 12/04/16 08:49; Admin Dose 10 MG; Start 12/01/16 at 09:00 Mirtazapine (Remeron) 30 mg DAILY PO Last administered on 12/04/16 08:48; Admin Dose 30 MG; Start 12/01/16 at 09:00 Enoxaparin Sodium (Lovenox) 40 mg DAILY SC Last administered on 12/04/16 08: 50; Admin Dose 40 MG; Start 12/02/16 at 09:00 Pantoprazole (Protonix Tab) 40 mg DAILY@06 PO Last administered on 12/04/16 06:19; Admin Dose 40 MG; Start 12/03/16 at 06:00 Insulin Glargine (Lantus) 5 unit DAILY@08 SC Last administered on 12/04/16 08 :58; Admin Dose 5 UNIT; Start 12/04/16 at 08:00 MONA HARRIS MD Dec 04, 2016 16:18
[2016-12-04 20:04] VITALS: BP 146/89; RESP 22
[2016-12-04] MEDS ORDERED: INSULIN GLARGINE [LANtus] 3 ML PEN SC SCH (21:00)
[2016-12-04] MEDS: GABAPENTIN 100 MG CAP PO SCH (21:07)
--- NOTE | 2016-12-04 21:19 | RADRPT ---
PROCEDURE: CT abdomen and pelvis without contrast. CLINICAL INDICATION: Diarrhea TECHNIQUE: CT scan of the abdomen and pelvis without contrast was performed and is reconstructed a t 2.5 mm contiguous axial intervals from the dome of the diaphragm to the inferior pubic rami.. The patient was scanned without intravenous contrast. Sagittal and coronal reformatted images were obt ained from the axial source images. The calculated radiation dose measures 415 mGy centimeters. The CTDI measures 7 mGy. Individualized dose optimization technique was used for the performance of this exam. This included 1. Automated exposure control. 2. Adjustment of the mA and / or kV according to the patient's size. 3. Use of iterative reconstructed technique. COMPARISON: CT abdomen pelvis July 16, 2014 FINDINGS: The lung bases are clear of any infiltrate or nodule. No effusion is seen. The liver is of normal size, contour and attenuation with no mass or ductal dilatation. Gallbladder has been removed. No splenic, adrenal or pancreatic abnormalities present. Kidneys are enlarged. The parenchyma is intact. There is moderate bilateral hydroureter nephrosis to the level of the urinary bladder. No ureteral stones are detected. Urinary bladder is severely dist ended. No bladder masses stone is present. Uterus is been removed. No adnexal mass is visualized. There is no aneurysm. No adenopathy is present. No bowel mass or obstruction is present. The appendix is normal. No phlegmon, ascites or pneumop eritoneum is visualized. The osseous structures are intact. IMPRESSION: No bowel mass or obstruction. Bilateral hydroureter nephrosis. No stone or mass. Distended urinary bladder. Recommend renal ultras ound following urination or drainage of the bladder with Barboza catheter. Post cholecystectomy. Post hysterectomy. .Bradly Luke MD, MD Date Time Electronically viewed and signed by .Bradly Luke MD, MD on 12/04/2016 21:19 .A/
[2016-12-05] MEDS: ACCU-CHEK XX SCH (02:00)
[2016-12-05 02:18] VITALS: BP 135/79; RESP 22
[2016-12-05] MEDS: morphine 2 MG INJ IV PRN ×5 (03:13→20:08)
[2016-12-05] MEDS: PANTOPRAZOLE (EC) 40 MG TAB PO SCH (06:19)
--- NOTE | 2016-12-05 07:45 | CONS ---
DATE OF ADMISSION: 11/30/2016 DATE OF CONSULTATION: TYPE OF CONSULTATION: Gastrointestinal. HISTORY OF PRESENT ILLNESS: Patient is a 41-year-old female with history of seizure disorder, nonco mpliant, hyperglycemia, multiple sclerosis, hypertension, dyslipidemia and wheelchair bound, comes t o the hospital with diarrhea and fever. Patient's appetite has been poor. She lost significant mariia ght. The diarrhea has been going on for the last 1 year. 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 PAST MEDICAL HISTORY: As described, multiple sclerosis, diabetes mellitus, hypertension, dyslipidem ia, history of DVT. FAMILY HISTORY: Negative. SOCIAL HISTORY: Negative. MEDICATIONS: All reviewed. She is on: 1. Coumadin. 2. Dilantin. 3. Omeprazole. 4. Mirtazapine. 5. Insulin. 6. Cyclobenzaprine. 7. Clindamycin. 8. Cipro. 9. Bisacodyl. 10. Aspirin. 11. Abilify. REVIEW OF SYSTEMS: Negative. PHYSICAL EXAMINATION VITALS: Stable. HEENT: Unremarkable. NECK: Supple, no thyromegaly, no lymphadenopathy. CARDIOVASCULAR: No murmur, gallop or click. LUNGS: Clear. ABDOMEN: Benign. EXTREMITIES: No edema. CENTRAL NERVOUS SYSTEM: Grossly within normal limits. She definitely has lost a lot of weight. e skin is sagging near the upper arm. LABORATORY DATA: Her hematocrit is 32. Glucose is within normal limits. Liver function normal exc ept for the elevation of alkaline phosphorus. INR was 1.1. She had a CAT scan done but we do not h ave the report. The patient had a GI procedure done on and Dr. Garcia did a colonoscopy whic h was normal and the patient's diarrhea was most probably , it was related to diabetic enteropa thy. IMPRESSION: 1. Chronic diarrhea. 2. Weight loss. 3. Anemia. 4. Multiple sclerosis. 5. Wheelchair bound. 6. Hypertension. 7. Diabetes mellitus. PLAN: At this point, is to send stool for analysis. CAT scan has been done and we will review it. The patient had a colonoscopy 2 years ago that was negative. She definitely needs a capsule endosc opy to rule out Crohn's disease. Will send stool for calprotectin and IBD serology. This will do i t as an outpatient. In the interim, the patient will be placed on Questran for diarrhea. Dictated By: SHAHLA VILLAR/BENJIE Conf#: [id number] DID#: [id number] CC: MONA HARRIS MD;*End*
[2016-12-05] MEDS: INSULIN ASPART [NOVOLOG] 3 ML PEN SC SCH ×4 (07:50→20:43)
[2016-12-05] MEDS: SOD CHLORIDE 0.9% 1,000 ML IV SCH ×2 (07:57→20:49)
[2016-12-05 08:06] VITALS: BP 137/93; RESP 22
[2016-12-05] MEDS: INSULIN GLARGINE [LANtus] 3 ML PEN SC SCH (08:42)
[2016-12-05] MEDS: ARIPIPRAZOLE 5 MG TAB PO SCH (08:43)
[2016-12-05] MEDS: MIRTAZAPINE 15 MG TAB PO SCH (08:43)
[2016-12-05] MEDS: ENOXAPARIN 40 MG/0.4 ML SYG SC SCH (08:43)
[2016-12-05] MEDS: PHENYTOIN 100 MG CAP PO SCH ×3 (08:44→20:43)
[2016-12-05] MEDS: CYCLOBENZAPRINE 10 MG TAB PO SCH (08:44)
[2016-12-05] MEDS: ASPIRIN (EC) 81 MG TAB PO SCH (08:44)
[2016-12-05] MEDS: SERTRALINE 50 MG TAB PO SCH (08:44)
[2016-12-05] MEDS: BISACODYL (EC) 5 MG TAB PO SCH ×2 (08:45→20:37)
--- NOTE | 2016-12-05 14:36 | PN ---
Date/Time of Note Date/Time of Note DATE: 12/05/16 TIME: 14:34 Assessment/Plan VTE Prophylaxis VTE Prophylaxis Intervention: other Lines/Catheters IV Catheter Type (from Nrsg): PICC Line Central line still needed: Yes Urinary Cath still in place: No Assessment/Plan Chief Complaint/Hosp Course IMPRESSION: 1. Poor p.o. intake.BETTER 2. Abdominal pain.BETTER 3. Hyponatremia.better 4. Acute kidney injury.BETTER 5. Anemia. 6 HX DVT non compliance w meds 7 u bladder distension 8 diarrhea PLAN PT OT home soon gu marcelo prn Problems: Subjective 24 Hr Interval Summary Subjective hx not possible: other (diarrhea+,no abd pain) Exam/Review of Systems Vital Signs Vitals Vital Signs Date Time Temp Pulse Resp B/P Pulse Ox O2 Delivery O2 Flow Rate FiO2 12/05/16 08:06 97.6 104 22 137/93 97 Intake and Output 12/04/16 12/04/16 12/05/16 15:00 23:00 07:00 Intake Total 2425 ml 800 ml Output Total 2 ml Balance 2425 ml 798 ml Exam Neck: supple Respiratory: clear to auscultation Cardiovascular: regular rate and rhythm Gastrointestinal: bowel sounds (+), No tender Extremities: No edema Results Result Diagram: 12/02/16 0511 Results 24 hrs Laboratory Tests Test 12/04/16 17:27 12/04/16 21:05 12/05/16 08:39 12/05/16 12:27 Bedside Glucose 77 82 84 138 Medications Medications Current Medications Acetaminophen 650 mg 650 mg Q6H PRN PO PAIN AND OR ELEVATED TEMP Last administered on 12/01/16 01:40; Admin Dose 650 MG; Start 11/30/16 at 15:00 Sodium Chloride (NS) 1,000 ml @ 75 mls/hr [id number] IV Last administered on 07:57; Admin Dose 75 MLS/HR; Start 11/30/16 at 16:00 Diagnostic Test (Pha) (Accu-Chek) 1 ea 02 XX Last administered on 12/04/16 02 :42; Admin Dose 1 EA; Start 12/01/16 at 02:00 Phenytoin (Dilantin) 100 mg TID PO Last administered on 12/05/16 12:24; Admin Dose 100 MG; Start 11/30/16 at 21:00 Miscellaneous Information 1 ea NOTE XX ; Start 11/30/16 at 16:00 Glucose (Glutose) 15 gm Q15M PRN PO DECREASED GLUCOSE; Start 11/30/16 at 16:00 Glucose (Glutose) 22.5 gm Q15M PRN PO DECREASED GLUCOSE; Start 11/30/16 at 16: 00 Dextrose (D50w Syringe) 25 ml Q15M PRN IV DECREASED GLUCOSE; Start 11/30/16 at 16:00 Dextrose (D50w Syringe) 50 ml Q15M PRN IV DECREASED GLUCOSE; Start 11/30/16 at 16:00 Glucagon (Glucagen) 1 mg Q15M PRN IM DECREASED GLUCOSE; Start 11/30/16 at 16:00 Glucose (Glutose) 15 gm Q15M PRN BUCCAL DECREASED GLUCOSE Last administered on 12/04/16 02:37; Admin Dose 15 GM; Start 11/30/16 at 16:00 Morphine Sulfate (morphine) 2 mg Q4H PRN IV PAIN LEVEL 4-7 Last administered on 12/05/16 12:25; Admin Dose 2 MG; Start 11/30/16 at 16:00 IV Flush (NS 10 ml) 10 ml PRN PRN IV IV PROTOCOL; Start 11/30/16 at 19:30 Sertraline HCl (Zoloft) 25 mg DAILY PO Last administered on 12/05/16 08:44; Admin Dose 25 MG; Start 12/01/16 at 09:00 Gabapentin (Neurontin) 200 mg HS PO Last administered on 12/04/16 21:07; Admin Dose 200 MG; Start 12/01/16 at 21:00 Aripiprazole (Abilify) 5 mg DAILY PO Last administered on 12/05/16 08:43; Admin Dose 5 MG; Start 12/01/16 at 09:00 Aspirin (Halfprin) 81 mg DAILY PO Last administered on 12/05/16 08:44; Admin Dose 81 MG; Start 12/01/16 at 09:00 Bisacodyl (Dulcolax) 10 mg BID PO Last administered on 12/01/16 20:21; Admin Dose 10 MG; Start 12/01/16 at 09:00 Cyclobenzaprine HCl (Flexeril) 10 mg DAILY PO Last administered on 12/05/16 08:44; Admin Dose 10 MG; Start 12/01/16 at 09:00 Mirtazapine (Remeron) 30 mg DAILY PO Last administered on 12/05/16 08:43; Admin Dose 30 MG; Start 12/01/16 at 09:00 Enoxaparin Sodium (Lovenox) 40 mg DAILY SC Last administered on 12/05/16 08: 43; Admin Dose 40 MG; Start 12/02/16 at 09:00 Pantoprazole (Protonix Tab) 40 mg DAILY@06 PO Last administered on 12/05/16 06:19; Admin Dose 40 MG; Start 12/03/16 at 06:00 Insulin Glargine (Lantus) 5 unit DAILY@08 SC Last administered on 12/05/16 08 :42; Admin Dose 5 UNIT; Start 12/04/16 at 08:00 Cholestyramine Resin (Questran) 1 pkt TID PO ; Start 12/05/16 at 21:00 MONA HARRIS MD Dec 05, 2016 14:36
--- NOTE | 2016-12-05 15:30 | CONS ---
Date/Time of Note Date/Time of Note DATE: 12/05/16 TIME: 15:29 Assessment/Plan Assessment/Plan Additional Assessment/Plan IMPRESSION: 1. Chronic diarrhea. 2. Weight loss. 3. Anemia. 4. Multiple sclerosis. 5. Wheelchair bound. 6. Hypertension. 7. Diabetes mellitus. PLAN: At this point, is to send stool for analysis. CAT scan has been done and we will review it. The patient had a colonoscopy 2 years ago that was negative. She definitely needs a capsule endoscopy to rule out Crohn's disease. Will send stool for calprotectin and IBD serology. This will do it as an outpatient. In the interim, the patient will be placed on Questran for diarrhea. Consultation Date/Type/Reason Admit Date/Time Nov 30, 2016 at 13:33 Initial Consult Date 24 HR Interval Summary Constitutional: improved Exam/Review of Systems Vital Signs Vitals Vital Signs Date Time Temp Pulse Resp B/P Pulse Ox O2 Delivery O2 Flow Rate FiO2 12/05/16 08:06 97.6 104 22 137/93 97 Intake and Output 12/04/16 12/04/16 12/05/16 15:00 23:00 07:00 Intake Total 2425 ml 800 ml Output Total 2 ml Balance 2425 ml 798 ml Exam Constitutional: alert, oriented, well developed Psych: nl mood/affect, no complaints Head: atraumatic, normocephalic Eyes: EOMI, PERRL, nl conjunctiva, nl lids, nl sclera ENMT: nl external ears & nose, nl lips & teeth, nl nasal mucosa & septum Neck: non-tender, supple Respiratory: clear to auscultation, normal air movement Cardiovascular: nl pulses, regular rate and rhythm Gastrointestinal: nl liver, spleen, non-tender, soft Musculoskeletal: nl extremities to inspection, nl gait and stance Extremities: normal pulses Neurological: SERVICE 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 intact, nl mental status, nl speech, nl strength Skin: nl turgor, No rash or lesions Lymph: nl lymph nodes Results Result Diagram: 12/02/16 0511 Results 24 hrs Laboratory Tests Test 12/04/16 17:27 12/04/16 21:05 12/05/16 08:39 12/05/16 12:27 Bedside Glucose 77 82 84 138 Medications Medications Current Medications Acetaminophen 650 mg 650 mg Q6H PRN PO PAIN AND OR ELEVATED TEMP Last administered on 12/01/16 01:40; Admin Dose 650 MG; Start 11/30/16 at 15:00 Sodium Chloride (NS) 1,000 ml @ 75 mls/hr [id number] IV Last administered on 07:57; Admin Dose 75 MLS/HR; Start 11/30/16 at 16:00 Diagnostic Test (Pha) (Accu-Chek) 1 ea 02 XX Last administered on 12/04/16 02 :42; Admin Dose 1 EA; Start 12/01/16 at 02:00 Phenytoin (Dilantin) 100 mg TID PO Last administered on 12/05/16 12:24; Admin Dose 100 MG; Start 11/30/16 at 21:00 Miscellaneous Information 1 ea NOTE XX ; Start 11/30/16 at 16:00 Glucose (Glutose) 15 gm Q15M PRN PO DECREASED GLUCOSE; Start 11/30/16 at 16:00 Glucose (Glutose) 22.5 gm Q15M PRN PO DECREASED GLUCOSE; Start 11/30/16 at 16: 00 Dextrose (D50w Syringe) 25 ml Q15M PRN IV DECREASED GLUCOSE; Start 11/30/16 at 16:00 Dextrose (D50w Syringe) 50 ml Q15M PRN IV DECREASED GLUCOSE; Start 11/30/16 at 16:00 Glucagon (Glucagen) 1 mg Q15M PRN IM DECREASED GLUCOSE; Start 11/30/16 at 16:00 Glucose (Glutose) 15 gm Q15M PRN BUCCAL DECREASED GLUCOSE Last administered on 12/04/16 02:37; Admin Dose 15 GM; Start 11/30/16 at 16:00 Morphine Sulfate (morphine) 2 mg Q4H PRN IV PAIN LEVEL 4-7 Last administered on 12/05/16 12:25; Admin Dose 2 MG; Start 11/30/16 at 16:00 IV Flush (NS 10 ml) 10 ml PRN PRN IV IV PROTOCOL; Start 11/30/16 at 19:30 Sertraline HCl (Zoloft) 25 mg DAILY PO Last administered on 12/05/16 08:44; Admin Dose 25 MG; Start 12/01/16 at 09:00 Gabapentin (Neurontin) 200 mg HS PO Last administered on 12/04/16 21:07; Admin Dose 200 MG; Start 12/01/16 at 21:00 Aripiprazole (Abilify) 5 mg DAILY PO Last administered on 12/05/16 08:43; Admin Dose 5 MG; Start 12/01/16 at 09:00 Aspirin (Halfprin) 81 mg DAILY PO Last administered on 12/05/16 08:44; Admin Dose 81 MG; Start 12/01/16 at 09:00 Bisacodyl (Dulcolax) 10 mg BID PO Last administered on 12/01/16 20:21; Admin Dose 10 MG; Start 12/01/16 at 09:00 Cyclobenzaprine HCl (Flexeril) 10 mg DAILY PO Last administered on 12/05/16 08:44; Admin Dose 10 MG; Start 12/01/16 at 09:00 Mirtazapine (Remeron) 30 mg DAILY PO Last administered on 12/05/16 08:43; Admin Dose 30 MG; Start 12/01/16 at 09:00 Enoxaparin Sodium (Lovenox) 40 mg DAILY SC Last administered on 12/05/16 08: 43; Admin Dose 40 MG; Start 12/02/16 at 09:00 Pantoprazole (Protonix Tab) 40 mg DAILY@06 PO Last administered on 12/05/16 06:19; Admin Dose 40 MG; Start 12/03/16 at 06:00 Insulin Glargine (Lantus) 5 unit DAILY@08 SC Last administered on 12/05/16 08 :42; Admin Dose 5 UNIT; Start 12/04/16 at 08:00 Cholestyramine Resin (Questran) 1 pkt TID PO ; Start 12/05/16 at 21:00 SHAHLA PAULINO MD Dec 05, 2016 15:30
--- NOTE | 2016-12-05 15:42 | CONS ---
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 The patient does have a history of urinary incontinence and does wear diapers at home. Most likely she does have overflow incontinence secondary to neurogenic bladder which is secondary to her multiple sclerosis. I had a long discussion with the patient about the treatment of this condition including self intermittent catheterization, indwelling Barboza catheter, the self- catheterization could be done by the patient herself or by any family or friends who are willing to do it for her if she is willing to accept that also discussed the trying medications such as Urecholine and hopefully that may help Problems: Consultation Date/Type/Reason Admit Date/Time Nov 30, 2016 at 13:33 Date of Consultation: Dec 05, 2016 Type of Consultation: Urology Reason for Consultation Urinary retention,neurogenic bladder, multiple sclerosis Referring Provider: MONA HARRIS MD Hx of Present Illness 41-year-old female presented to the hospital with poor p.o. intake, abdominal pain. CT scan of the abdomen and pelvis showed urinary retention and bilateral hydronephrosis. A urological consultation was therefore requested. Patient states that at home she is bedbound and wheelchair-bound. She does wear diapers because of urinary incontinence. She reports once before while in the hospital she was not emptying her bladder and had to have a Barboza catheter and a drainage bag. Constitutional: other (Weight loss), poor po (Intake) Eyes: no complaints ENT: no complaints Respiratory: no complaints Cardiovascular: no complaints Gastrointestinal: no complaints, other (Incontinence of stool as well) Genitourinary: no complaints, other (Urinary incontinence) Musculoskeletal: other (Weakness and not being able to walk) Skin: no complaints Neurologic: other (WEAKNESS=), seizure Endocrine: other (Hyperglycemia) Lymphatic: no complaints Past Medical History Medical History: deep vein thrombosis, diabetes, high cholesterol, hypertension Past Surgical History Past Surgical Hx: other (Right knee surgery, cholecystectomy, 4 C-sections, hysterectomy) Family History Significant Family History: no pertinent family hx Social History She is a 5 para 6 she has 1 set of twins. One normal delivery and for C -sections Smoking Status: Former smoker Exam/Review of Systems Vital Signs Vitals Vital Signs Date Time Temp Pulse Resp B/P Pulse Ox O2 Delivery O2 Flow Rate FiO2 12/05/16 08:06 97.6 104 22 137/93 97 Intake and Output 12/04/16 12/04/16 12/05/16 15:00 23:00 07:00 Intake Total 2425 ml 800 ml Output Total 2 ml Balance 2425 ml 798 ml Exam Constitutional: alert, oriented Psych: no complaints Head: normocephalic Eyes: nl conjunctiva ENMT: nl external ears & nose Neck: non-tender, supple Respiratory: normal air movement Cardiovascular: No edema Gastrointestinal: other (Bladder is distended up to the umbilicus), soft, surgical scars Genitourinary - Female: nl external genitalia, other (Pelvic exam showed that the bladder is very distended) Musculoskeletal: muscle weakness, range of motion (Limited motion of the right knee) Extremities: other (Contracture of her fingers), tenderness (Right knee), No calf tenderness Neurological: focal weakness Skin: nl turgor Results Result Diagram: 12/02/16 05 Results 24 hrs Laboratory Tests Test 12/04/16 17:27 12/04/16 21:05 12/05/16 08:39 12/05/16 12:27 Bedside Glucose 77 82 84 138 Imaging Free Text/Dictation CT scan of the abdomen and pelvis: IMPRESSION: No bowel mass or obstruction. Bilateral hydroureter nephrosis. No stone or mass. Distended urinary bladder. Recommend renal ultrasound following urination or drainage of the bladder with Barboza catheter. Post cholecystectomy. Post hysterectomy. .Bradly Luke MD, MD Date Medications Medications Current Medications Acetaminophen 650 mg 650 mg Q6H PRN PO PAIN AND OR ELEVATED TEMP Last administered on 12/01/16 01:40; Admin Dose 650 MG; Start 11/30/16 at 15:00 Sodium Chloride (NS) 1,000 ml @ 75 mls/hr [id number] IV Last administered on 07:57; Admin Dose 75 MLS/HR; Start 11/30/16 at 16:00 Diagnostic Test (Pha) (Accu-Chek) 1 ea 02 XX Last administered on 12/04/16 02 :42; Admin Dose 1 EA; Start 12/01/16 at 02:00 Phenytoin (Dilantin) 100 mg TID PO Last administered on 12/05/16 12:24; Admin Dose 100 MG; Start 11/30/16 at 21:00 Miscellaneous Information 1 ea NOTE XX ; Start 11/30/16 at 16:00 Glucose (Glutose) 15 gm Q15M PRN PO DECREASED GLUCOSE; Start 11/30/16 at 16:00 Glucose (Glutose) 22.5 gm Q15M PRN PO DECREASED GLUCOSE; Start 11/30/16 at 16: 00 Dextrose (D50w Syringe) 25 ml Q15M PRN IV DECREASED GLUCOSE; Start 11/30/16 at 16:00 Dextrose (D50w Syringe) 50 ml Q15M PRN IV DECREASED GLUCOSE; Start 11/30/16 at 16:00 Glucagon (Glucagen) 1 mg Q15M PRN IM DECREASED GLUCOSE; Start 11/30/16 at 16:00 Glucose (Glutose) 15 gm Q15M PRN BUCCAL DECREASED GLUCOSE Last administered on 12/04/16 02:37; Admin Dose 15 GM; Start 11/30/16 at 16:00 Morphine Sulfate (morphine) 2 mg Q4H PRN IV PAIN LEVEL 4-7 Last administered on 12/05/16 12:25; Admin Dose 2 MG; Start 11/30/16 at 16:00 IV Flush (NS 10 ml) 10 ml PRN PRN IV IV PROTOCOL; Start 11/30/16 at 19:30 Sertraline HCl (Zoloft) 25 mg DAILY PO Last administered on 12/05/16 08:44; Admin Dose 25 MG; Start 12/01/16 at 09:00 Gabapentin (Neurontin) 200 mg HS PO Last administered on 12/04/16 21:07; Admin Dose 200 MG; Start 12/01/16 at 21:00 Aripiprazole (Abilify) 5 mg DAILY PO Last administered on 12/05/16 08:43; Admin Dose 5 MG; Start 12/01/16 at 09:00 Aspirin (Halfprin) 81 mg DAILY PO Last administered on 12/05/16 08:44; Admin Dose 81 MG; Start 12/01/16 at 09:00 Bisacodyl (Dulcolax) 10 mg BID PO Last administered on 12/01/16 20:21; Admin Dose 10 MG; Start 12/01/16 at 09:00 Cyclobenzaprine HCl (Flexeril) 10 mg DAILY PO Last administered on 12/05/16 08:44; Admin Dose 10 MG; Start 12/01/16 at 09:00 Mirtazapine (Remeron) 30 mg DAILY PO Last administered on 12/05/16 08:43; Admin Dose 30 MG; Start 12/01/16 at 09:00 Enoxaparin Sodium (Lovenox) 40 mg DAILY SC Last administered on 12/05/16 08: 43; Admin Dose 40 MG; Start 12/02/16 at 09:00 Pantoprazole (Protonix Tab) 40 mg DAILY@06 PO Last administered on 12/05/16 06:19; Admin Dose 40 MG; Start 12/03/16 at 06:00 Insulin Glargine (Lantus) 5 unit DAILY@08 SC Last administered on 12/05/16 08 :42; Admin Dose 5 UNIT; Start 12/04/16 at 08:00 Cholestyramine Resin (Questran) 1 pkt TID PO ; Start 12/05/16 at 21:00 CLEMENTE WOOD MD Dec 05, 2016 15:39
[2016-12-05 20:24] VITALS: BP 151/96; RESP 22
[2016-12-05] MEDS: CHOLESTYRAMINE 4 GM PACKET PO SCH (20:43)
[2016-12-05] MEDS: GABAPENTIN 100 MG CAP PO SCH (20:43)
[2016-12-05] MEDS: BETHANECHOL 10 MG TAB PO SCH (22:49)
[2016-12-06] MEDS: morphine 2 MG INJ IV PRN ×6 (00:02→21:09)
[2016-12-06] MEDS: ACCU-CHEK XX SCH (02:00)
[2016-12-06 02:30] VITALS: BP 128/80; PULSE 104; RESP 18
[2016-12-06] MEDS: PANTOPRAZOLE (EC) 40 MG TAB PO SCH (05:56)
[2016-12-06] MEDS: INSULIN ASPART [NOVOLOG] 3 ML PEN SC SCH ×4 (07:50→21:08)
[2016-12-06 08:00] VITALS: BP 152/85; RESP 20
[2016-12-06] MEDS: CYCLOBENZAPRINE 10 MG TAB PO SCH (08:48)
[2016-12-06] MEDS: ARIPIPRAZOLE 5 MG TAB PO SCH (08:49)
[2016-12-06] MEDS: PHENYTOIN 100 MG CAP PO SCH ×3 (08:50→21:05)
[2016-12-06] MEDS: SERTRALINE 50 MG TAB PO SCH (08:50)
[2016-12-06] MEDS: BETHANECHOL 10 MG TAB PO SCH ×3 (08:50→21:06)
[2016-12-06] MEDS: ASPIRIN (EC) 81 MG TAB PO SCH (08:50)
[2016-12-06] MEDS: MIRTAZAPINE 15 MG TAB PO SCH (08:51)
[2016-12-06] MEDS: BISACODYL (EC) 5 MG TAB PO SCH ×2 (08:53→21:00)
[2016-12-06] MEDS: ENOXAPARIN 40 MG/0.4 ML SYG SC SCH (08:59)
[2016-12-06] MEDS: INSULIN GLARGINE [LANtus] 3 ML PEN SC SCH (08:59)
[2016-12-06] MEDS: SOD CHLORIDE 0.9% 1,000 ML IV SCH ×2 (11:07→23:53)
[2016-12-06] MEDS: CHOLESTYRAMINE 4 GM PACKET PO SCH ×3 (11:08→21:00)
[2016-12-06 14:41] VITALS: BP 133/87; RESP 19
--- NOTE | 2016-12-06 18:27 | PN ---
Date/Time of Note Date/Time of Note DATE: 12/06/16 TIME: 18:25 Assessment/Plan VTE Prophylaxis VTE Prophylaxis Intervention: other Lines/Catheters IV Catheter Type (from Nrs): PICC Line Central line still needed: Yes Urinary Cath still in place: No Assessment/Plan Chief Complaint/Hosp Course IMPRESSION: 1. Poor p.o. intake.BETTER 2. Abdominal pain.BETTER 3. Hyponatremia.better 4. Acute kidney injury.BETTER 5. Anemia. 6 HX DVT non compliance w meds 7 ms w neurogenic bladder 8 diarrhea PLAN PT OT stool study gu f/u marcelo prn Problems: Subjective 24 Hr Interval Summary Subjective hx not possible: other (still diarrhea and neurogenic bladder,need gordon cath) Exam/Review of Systems Vital Signs Vitals Vital Signs Date Time Temp Pulse Resp B/P Pulse Ox O2 Delivery O2 Flow Rate FiO2 12/06/16 14:41 97.7 107 19 133/87 100 12/06/16 02:30 Room Air Intake and Output 12/05/16 12/05/16 12/06/16 15:00 23:00 07:00 Intake Total 2420 ml 1400 ml Output Total 1100 ml 1325 ml Balance 1320 ml 75 ml Exam Neck: supple Respiratory: clear to auscultation Cardiovascular: regular rate and rhythm Gastrointestinal: soft Musculoskeletal: nl extremities to inspection Extremities: normal pulses Results Result Diagram: 12/02/16 0511 Results 24 hrs Laboratory Tests Test 12/05/16 20:42 12/06/16 08:26 12/06/16 12:25 12/06/16 17:36 Bedside Glucose 138 109 192 164 Medications Medications Current Medications Acetaminophen 650 mg 650 mg Q6H PRN PO PAIN AND OR ELEVATED TEMP Last administered on 12/01/16 01:40; Admin Dose 650 MG; Start 11/30/16 at 15:00 Sodium Chloride (NS) 1,000 ml @ 75 mls/hr [id number] IV Last administered on 11:07; Admin Dose 75 MLS/HR; Start 11/30/16 at 16:00 Diagnostic Test (Pha) (Accu-Chek) 1 ea 02 XX Last administered on 12/04/16 02 :42; Admin Dose 1 EA; Start 12/01/16 at 02:00 Phenytoin (Dilantin) 100 mg TID PO Last administered on 12/06/16 12:18; Admin Dose 100 MG; Start 11/30/16 at 21:00 Miscellaneous Information 1 ea NOTE XX ; Start 11/30/16 at 16:00 Glucose (Glutose) 15 gm Q15M PRN PO DECREASED GLUCOSE; Start 11/30/16 at 16:00 Glucose (Glutose) 22.5 gm Q15M PRN PO DECREASED GLUCOSE; Start 11/30/16 at 16: 00 Dextrose (D50w Syringe) 25 ml Q15M PRN IV DECREASED GLUCOSE; Start 11/30/16 at 16:00 Dextrose (D50w Syringe) 50 ml Q15M PRN IV DECREASED GLUCOSE; Start 11/30/16 at 16:00 Glucagon (Glucagen) 1 mg Q15M PRN IM DECREASED GLUCOSE; Start 11/30/16 at 16:00 Glucose (Glutose) 15 gm Q15M PRN BUCCAL DECREASED GLUCOSE Last administered on 12/04/16 02:37; Admin Dose 15 GM; Start 11/30/16 at 16:00 Morphine Sulfate (morphine) 2 mg Q4H PRN IV PAIN LEVEL 4-7 Last administered on 12/06/16 16:28; Admin Dose 2 MG; Start 11/30/16 at 16:00 IV Flush (NS 10 ml) 10 ml PRN PRN IV IV PROTOCOL; Start 11/30/16 at 19:30 Sertraline HCl (Zoloft) 25 mg DAILY PO Last administered on 12/06/16 08:50; Admin Dose 25 MG; Start 12/01/16 at 09:00 Gabapentin (Neurontin) 200 mg HS PO Last administered on 12/05/16 20:43; Admin Dose 200 MG; Start 12/01/16 at 21:00 Aripiprazole (Abilify) 5 mg DAILY PO Last administered on 12/06/16 08:49; Admin Dose 5 MG; Start 12/01/16 at 09:00 Aspirin (Halfprin) 81 mg DAILY PO Last administered on 12/06/16 08:50; Admin Dose 81 MG; Start 12/01/16 at 09:00 Bisacodyl (Dulcolax) 10 mg BID PO Last administered on 12/01/16 20:21; Admin Dose 10 MG; Start 12/01/16 at 09:00 Cyclobenzaprine HCl (Flexeril) 10 mg DAILY PO Last administered on 12/06/16 08:48; Admin Dose 10 MG; Start 12/01/16 at 09:00 Mirtazapine (Remeron) 30 mg DAILY PO Last administered on 12/06/16 08:51; Admin Dose 30 MG; Start 12/01/16 at 09:00 Enoxaparin Sodium (Lovenox) 40 mg DAILY SC Last administered on 12/06/16 08: 59; Admin Dose 40 MG; Start 12/02/16 at 09:00 Pantoprazole (Protonix Tab) 40 mg DAILY@06 PO Last administered on 12/06/16 05:56; Admin Dose 40 MG; Start 12/03/16 at 06:00 Insulin Glargine (Lantus) 5 unit DAILY@08 SC Last administered on 12/06/16 08 :59; Admin Dose 5 UNIT; Start 12/04/16 at 08:00 Cholestyramine Resin (Questran) 1 pkt TID PO Last administered on 12/06/16 11 :08; Admin Dose 1 PKT; Start 12/05/16 at 21:00 Bethanechol Chloride (Urecholine) 10 mg TID PO Last administered on 12/06/16 12:18; Admin Dose 10 MG; Start 12/05/16 at 21:00 MONA HARRIS MD Dec 06, 2016 18:27
[2016-12-06 20:00] VITALS: BP 147/91; RESP 20
[2016-12-06] MEDS: GABAPENTIN 100 MG CAP PO SCH (21:05)
[2016-12-07] MEDS: morphine 2 MG INJ IV PRN ×6 (01:17→22:04)
[2016-12-07] MEDS: ACCU-CHEK XX SCH (01:42)
[2016-12-07 02:26] VITALS: BP 127/78; PULSE 98; RESP 16
[2016-12-07 05:19] LABS: BASOPHILS % 0.3 % (0.0-2.0); EOSINOPHILS # 0.2 10^3/ul (0.0-0.5); HEMATOCRIT 26.9 % (37.0-47.0); HEMOGLOBIN 8.4 g/dl (12.0-16.0); LYMPHOCYTES # 1.9 10^3/ul (0.8-2.9); LYMPHOCYTES % 24.7 % (15.0-51.0); MEAN CORPUSCULAR HEMOGLOBIN 25.4 pg (29.0-33.0); MEAN CORPUSCULAR HGB CONC 31.2 g/dl (32.0-37.0); MEAN CORPUSCULAR VOLUME 81.3 fl (82.0-101.0); MEAN PLATELET VOLUME 10.9 fl (7.4-10.4); MONOCYTE # 0.6 10^3/ul (0.3-0.9); MONOCYTES % 7.7 % (0.0-11.0); NEUTROPHILS % 64.5 % (39.0-77.0); PLATELET COUNT 304 10^3/UL (140-415); RED BLOOD COUNT 3.31 10^6/ul (4.20-5.40); RED CELL DISTRIBUTION WIDTH 12.8 % (11.5-14.5); WHITE BLOOD COUNT 7.7 10^3/ul (4.8-10.8)
[2016-12-07] MEDS: PANTOPRAZOLE (EC) 40 MG TAB PO SCH (05:23)
[2016-12-07 05:49] LABS: ALBUMIN 2.7 g/dl (3.3-4.9); ALBUMIN/GLOBULIN RATIO 0.71; CALCIUM 8.4 mg/dl (8.4-10.2); CREATININE 0.65 mg/dl (0.44-1.00); POTASSIUM 3.9 mmol/L (3.5-5.1); TOTAL PROTEIN 6.5 g/dl (6.1-8.1)
[2016-12-07] MEDS: INSULIN ASPART [NOVOLOG] 3 ML PEN SC SCH ×4 (07:50→21:00)
[2016-12-07 08:03] VITALS: BP 127/74; RESP 18
[2016-12-07] MEDS: CHOLESTYRAMINE 4 GM PACKET PO SCH ×5 (09:00→21:53)
[2016-12-07] MEDS: BISACODYL (EC) 5 MG TAB PO SCH ×2 (09:00→21:05)
[2016-12-07] MEDS: CIPROFLOXACIN 500 MG TAB PO SCH ×2 (09:27→17:59)
[2016-12-07] MEDS: CYCLOBENZAPRINE 10 MG TAB PO SCH (09:28)
[2016-12-07] MEDS: ASPIRIN (EC) 81 MG TAB PO SCH (09:28)
[2016-12-07] MEDS: ARIPIPRAZOLE 5 MG TAB PO SCH (09:28)
[2016-12-07] MEDS: MIRTAZAPINE 15 MG TAB PO SCH (09:29)
[2016-12-07] MEDS: BETHANECHOL 25 MG TAB PO SCH ×3 (09:29→21:05)
[2016-12-07] MEDS: ENOXAPARIN 40 MG/0.4 ML SYG SC SCH (09:30)
[2016-12-07] MEDS: INSULIN GLARGINE [LANtus] 3 ML PEN SC SCH (09:31)
[2016-12-07] MEDS: PHENYTOIN 100 MG CAP PO SCH ×3 (10:02→21:05)
[2016-12-07] MEDS: SERTRALINE 50 MG TAB PO SCH (10:03)
--- NOTE | 2016-12-07 14:36 | PN ---
Date/Time of Note Date/Time of Note DATE: 12/07/16 TIME: 14:36 Assessment/Plan Lines/Catheters IV Catheter Type (from Nrs): PICC Line Urinary Cath still in place: No Exam/Review of Systems Vital Signs Vitals Vital Signs Date Time Temp Pulse Resp B/P Pulse Ox O2 Delivery O2 Flow Rate FiO2 12/07/16 08:03 98.2 78 18 127/74 100 12/07/16 02:26 Room Air Intake and Output 12/06/16 12/06/16 12/07/16 15:00 23:00 07:00 Intake Total 1630 ml 1425 ml Balance 1630 ml 1425 ml Results Result Diagram: 12/07/16 0438 12/07/16 0438 Results 24 hrs Laboratory Tests Test 12/06/16 17:36 12/06/16 21:04 12/07/16 01:37 12/07/16 04:38 Bedside Glucose 164 191 179 White Blood Count 7.7 Red Blood Count 3.31 L Hemoglobin 8.4 L Hematocrit 26.9 L Mean Corpuscular Volume 81.3 L Mean Corpuscular Hemoglobin 25.4 L Mean Corpuscular Hemoglobin Concent 31.2 L Red Cell Distribution Width 12.8 Platelet Count 304 Mean Platelet Volume 10.9 H Neutrophils % 64.5 Lymphocytes % 24.7 Monocytes % 7.7 Eosinophils % 2.0 Basophils % 0.3 Nucleated Red Blood Cells % 0.0 Neutrophils # 5.0 Lymphocytes # 1.9 Monocytes # 0.6 Eosinophils # 0.2 Basophils # 0.0 Nucleated Red Blood Cells # 0.0 Sodium Level 139 Potassium Level 3.9 Chloride Level 109 Carbon Dioxide Level 23 Anion Gap 11 Blood Urea Nitrogen 10 Creatinine 0.65 Glucose Level 143 Calcium Level 8.4 Total Bilirubin 0.0 L Direct Bilirubin 0.00 Indirect Bilirubin 0.0 Aspartate Amino Transf (AST/SGOT) 13 L Alanine Aminotransferase (ALT/SGPT) 23 Alkaline Phosphatase 184 H Total Protein 6.5 Albumin 2.7 L Globulin 3.80 H Albumin/Globulin Ratio 0.71 Test 12/07/16 09:07 12/07/16 13:19 Bedside Glucose 116 231 H Medications Medications Current Medications Acetaminophen 650 mg 650 mg Q6H PRN PO PAIN AND OR ELEVATED TEMP Last administered on 12/01/16t 01:40; Admin Dose 650 MG; Start 11/30/16 at 15:00 Sodium Chloride (NS) 1,000 ml @ 75 mls/hr [id number] IV Last administered on 23:53; Admin Dose 75 MLS/HR; Start 11/30/16 at 16:00 Diagnostic Test (Pha) (Accu-Chek) 1 ea 02 XX Last administered on 12/07/16 01 :42; Admin Dose 1 EA; Start 12/01/16 at 02:00 Phenytoin (Dilantin) 100 mg TID PO Last administered on 12/07/16 13:21; Admin Dose 100 MG; Start 11/30/16 at 21:00 Miscellaneous Information 1 ea NOTE XX ; Start 11/30/16 at 16:00 Glucose (Glutose) 15 gm Q15M PRN PO DECREASED GLUCOSE; Start 11/30/16 at 16:00 Glucose (Glutose) 22.5 gm Q15M PRN PO DECREASED GLUCOSE; Start 11/30/16 at 16: 00 Dextrose (D50w Syringe) 25 ml Q15M PRN IV DECREASED GLUCOSE; Start 11/30/16 at 16:00 Dextrose (D50w Syringe) 50 ml Q15M PRN IV DECREASED GLUCOSE; Start 11/30/16 at 16:00 Glucagon (Glucagen) 1 mg Q15M PRN IM DECREASED GLUCOSE; Start 11/30/16 at 16:00 Glucose (Glutose) 15 gm Q15M PRN BUCCAL DECREASED GLUCOSE Last administered on 12/04/16 02:37; Admin Dose 15 GM; Start 11/30/16 at 16:00 Morphine Sulfate (morphine) 2 mg Q4H PRN IV PAIN LEVEL 4-7 Last administered on 12/07/16 14:11; Admin Dose 2 MG; Start 11/30/16 at 16:00 IV Flush (NS 10 ml) 10 ml PRN PRN IV IV PROTOCOL; Start 11/30/16 at 19:30 Sertraline HCl (Zoloft) 25 mg DAILY PO Last administered on 12/07/16 10:03; Admin Dose 25 MG; Start 12/01/16 at 09:00 Gabapentin (Neurontin) 200 mg HS PO Last administered on 12/06/16 21:05; Admin Dose 200 MG; Start 12/01/16 at 21:00 Aripiprazole (Abilify) 5 mg DAILY PO Last administered on 12/07/16 09:28; Admin Dose 5 MG; Start 12/01/16 at 09:00 Aspirin (Halfprin) 81 mg DAILY PO Last administered on 12/07/16 09:28; Admin Dose 81 MG; Start 12/01/16 at 09:00 Bisacodyl (Dulcolax) 10 mg BID PO Last administered on 12/01/16 20:21; Admin Dose 10 MG; Start 12/01/16 at 09:00 Cyclobenzaprine HCl (Flexeril) 10 mg DAILY PO Last administered on 12/07/16 09:28; Admin Dose 10 MG; Start 12/01/16 at 09:00 Mirtazapine (Remeron) 30 mg DAILY PO Last administered on 12/07/16 09:29; Admin Dose 30 MG; Start 12/01/16 at 09:00 Enoxaparin Sodium (Lovenox) 40 mg DAILY SC Last administered on 12/07/16 09: 30; Admin Dose 40 MG; Start 12/02/16 at 09:00 Pantoprazole (Protonix Tab) 40 mg DAILY@06 PO Last administered on 12/07/16 05:23; Admin Dose 40 MG; Start 12/03/16 at 06:00 Insulin Glargine (Lantus) 5 unit DAILY@08 SC Last administered on 12/07/16 09 :31; Admin Dose 5 UNIT; Start 12/04/16 at 08:00 Cholestyramine Resin (Questran) 1 pkt TID PO Last administered on 12/06/16 11 :08; Admin Dose 1 PKT; Start 12/05/16 at 21:00 Bethanechol Chloride (Urecholine) 25 mg TID PO Last administered on 12/07/16 13:21; Admin Dose 25 MG; Start 12/07/16 at 09:00 Ciprofloxacin (Cipro) 500 mg BID@,18 PO Last administered on 12/07/16 09:27 ; Admin Dose 500 MG; Start 12/07/16 at 08:16 JULIAN STEPHEN MD Dec 07, 2016 14:36
--- NOTE | 2016-12-07 14:48 | PN ---
Date/Time of Note Date/Time of Note DATE: 12/07/16 TIME: 14:42 Assessment/Plan VTE Prophylaxis VTE Prophylaxis Intervention: LMWH Lines/Catheters IV Catheter Type (from Nrsg): PICC Line Central line still needed: Yes Urinary Cath still in place: No Assessment/Plan Chief Complaint/Hosp Course 41 y/o with # B/L hydroureteronephrosis and Urinary retention. Overflow incontinence due to neurogenic bladder due to MS # Urinary retention # Multiple sclerosis # DM # HTN Plan - Check PVR per Dr Ziegler and self cath as needed - Pt will be taught to do self cath, if does not tolerated will need marcelo cath - c/w betahnecol - c/w Cipro - d/c iv fluids - switch po pain meds Problems: Subjective 24 Hr Interval Summary Free Text/Dictation PVR >400 , recheck per Dr Ziegler Pt will be taught self catherisation but pt somewhat reluctant Exam/Review of Systems Vital Signs Vitals Vital Signs Date Time Temp Pulse Resp B/P Pulse Ox O2 Delivery O2 Flow Rate FiO2 12/07/16 08:03 98.2 78 18 127/74 100 12/07/16 02:26 Room Air Intake and Output 12/06/16 12/06/16 12/07/16 15:00 23:00 07:00 Intake Total 1630 ml 1425 ml Balance 1630 ml 1425 ml Exam Gen: Awake,alert, multple sclerosis Neck: supple Respiratory: clear to auscultation Cardiovascular: regular rate and rhythm Gastrointestinal: bowel sounds (+), No tender Extremities: No edema Results Result Diagram: 12/07/16 0438 12/07/16 0438 Results 24 hrs Laboratory Tests Test 12/06/16 17:36 12/06/16 21:04 12/07/16 01:37 12/07/16 04:38 Bedside Glucose 164 191 179 White Blood Count 7.7 Red Blood Count 3.31 L Hemoglobin 8.4 L Hematocrit 26.9 L Mean Corpuscular Volume 81.3 L Mean Corpuscular Hemoglobin 25.4 L Mean Corpuscular Hemoglobin Concent 31.2 L Red Cell Distribution Width 12.8 Platelet Count 304 Mean Platelet Volume 10.9 H Neutrophils % 64.5 Lymphocytes % 24.7 Monocytes % 7.7 Eosinophils % 2.0 Basophils % 0.3 Nucleated Red Blood Cells % 0.0 Neutrophils # 5.0 Lymphocytes # 1.9 Monocytes # 0.6 Eosinophils # 0.2 Basophils # 0.0 Nucleated Red Blood Cells # 0.0 Sodium Level 139 Potassium Level 3.9 Chloride Level 109 Carbon Dioxide Level 23 Anion Gap 11 Blood Urea Nitrogen 10 Creatinine 0.65 Glucose Level 143 Calcium Level 8.4 Total Bilirubin 0.0 L Direct Bilirubin 0.00 Indirect Bilirubin 0.0 Aspartate Amino Transf (AST/SGOT) 13 L Alanine Aminotransferase (ALT/SGPT) 23 Alkaline Phosphatase 184 H Total Protein 6.5 Albumin 2.7 L Globulin 3.80 H Albumin/Globulin Ratio 0.71 Test 12/07/16 09:07 12/07/16 13:19 Bedside Glucose 116 231 H Medications Medications Current Medications Acetaminophen 650 mg 650 mg Q6H PRN PO PAIN AND OR ELEVATED TEMP Last administered on 12/01/16 01:40; Admin Dose 650 MG; Start 11/30/16 at 15:00 Sodium Chloride (NS) 1,000 ml @ 75 mls/hr [id number] IV Last administered on 23:53; Admin Dose 75 MLS/HR; Start 11/30/16 at 16:00 Diagnostic Test (Pha) (Accu-Chek) 1 ea 02 XX Last administered on 12/07/16 01 :42; Admin Dose 1 EA; Start 12/01/16 at 02:00 Phenytoin (Dilantin) 100 mg TID PO Last administered on 12/07/16 13:21; Admin Dose 100 MG; Start 11/30/16 at 21:00 Miscellaneous Information 1 ea NOTE XX ; Start 11/30/16 at 16:00 Glucose (Glutose) 15 gm Q15M PRN PO DECREASED GLUCOSE; Start 11/30/16 at 16:00 Glucose (Glutose) 22.5 gm Q15M PRN PO DECREASED GLUCOSE; Start 11/30/16 at 16: 00 Dextrose (D50w Syringe) 25 ml Q15M PRN IV DECREASED GLUCOSE; Start 11/30/16 at 16:00 Dextrose (D50w Syringe) 50 ml Q15M PRN IV DECREASED GLUCOSE; Start 11/30/16 at 16:00 Glucagon (Glucagen) 1 mg Q15M PRN IM DECREASED GLUCOSE; Start 11/30/16 at 16:00 Glucose (Glutose) 15 gm Q15M PRN BUCCAL DECREASED GLUCOSE Last administered on 12/04/16 02:37; Admin Dose 15 GM; Start 11/30/16 at 16:00 Morphine Sulfate (morphine) 2 mg Q4H PRN IV PAIN LEVEL 4-7 Last administered on 12/07/16 14:11; Admin Dose 2 MG; Start 11/30/16 at 16:00 IV Flush (NS 10 ml) 10 ml PRN PRN IV IV PROTOCOL; Start 11/30/16 at 19:30 Sertraline HCl (Zoloft) 25 mg DAILY PO Last administered on 12/07/16 10:03; Admin Dose 25 MG; Start 12/01/16 at 09:00 Gabapentin (Neurontin) 200 mg HS PO Last administered on 12/06/16 21:05; Admin Dose 200 MG; Start 12/01/16 at 21:00 Aripiprazole (Abilify) 5 mg DAILY PO Last administered on 12/07/16 09:28; Admin Dose 5 MG; Start 12/01/16 at 09:00 Aspirin (Halfprin) 81 mg DAILY PO Last administered on 12/07/16 09:28; Admin Dose 81 MG; Start 12/01/16 at 09:00 Bisacodyl (Dulcolax) 10 mg BID PO Last administered on 12/01/16 20:21; Admin Dose 10 MG; Start 12/01/16 at 09:00 Cyclobenzaprine HCl (Flexeril) 10 mg DAILY PO Last administered on 12/07/16 09:28; Admin Dose 10 MG; Start 12/01/16 at 09:00 Mirtazapine (Remeron) 30 mg DAILY PO Last administered on 12/07/16 09:29; Admin Dose 30 MG; Start 12/01/16 at 09:00 Enoxaparin Sodium (Lovenox) 40 mg DAILY SC Last administered on 12/07/16 09: 30; Admin Dose 40 MG; Start 12/02/16 at 09:00 Pantoprazole (Protonix Tab) 40 mg DAILY@06 PO Last administered on 12/07/16 05:23; Admin Dose 40 MG; Start 12/03/16 at 06:00 Insulin Glargine (Lantus) 5 unit DAILY@08 SC Last administered on 12/07/16 09 :31; Admin Dose 5 UNIT; Start 12/04/16 at 08:00 Cholestyramine Resin (Questran) 1 pkt TID PO Last administered on 12/06/16 11 :08; Admin Dose 1 PKT; Start 12/05/16 at 21:00 Bethanechol Chloride (Urecholine) 25 mg TID PO Last administered on 12/07/16 13:21; Admin Dose 25 MG; Start 12/07/16 at 09:00 Ciprofloxacin (Cipro) 500 mg BID@,18 PO Last administered on 12/07/16 09:27 ; Admin Dose 500 MG; Start 12/07/16 at 08:16 JULIAN STEPHEN MD Dec 07, 2016 14:48
--- NOTE | 2016-12-07 15:09 | PN ---
DATE: 12/07/2016 The patient has urinary incontinence and it is overflow incontinence. She has a history of MS and s he has had urinary retention and bilateral hydronephrosis. OBJECTIVE VITAL SIGNS: Temperature is 98.2, pulse is 78, respiration 18, blood pressure 127/74. ABDOMEN: Soft. The patient yesterday was incontinent when she was having a bowel movement. Bladde r scan did show 618 mL and straight catheterization yielded 600 mL. Later on she voided 75 mL. The bladder scan showed 354 but the straight catheterization yielded 500 mL. The patient has been plac ed on urecholine and initially we put her on 10 mg 3 times a day and yesterday increased it to 25 mg 3 times a day. I did discuss with the patient the purpose of the urecholine and also for her to le arn to do self-catheterization and requested the nurses to teach her why she is in the hospital and also have the case mgr help arrange for her home health nurse and also to arrange for the suppli es needed to do self-catheterization should she be able to learn how to do it and also discussed wit h the nurse, the means and ways of helping the patient learn how to do it. She has to put the mirro r on the floor, sit at the edge of the bed or the potty and then this way she could easily identify the urethral meatus and then do the straight catheterization. LABORATORY DATA: CBC: White count 7.7, hemoglobin 8.4, hematocrit 26.9. The BUN is 10, creatinine is 0.65. Electrolytes are normal. The urine culture did show Klebsiella pneumoniae and it is sens itive to Cipro and started her on Cipro this morning. PLAN: To continue the Cipro and continue the urecholine and continue to check her postvoid residual and the straight cath and try to teach her how to do the self-catheterization. Dictated By: CLEMENTE LUJAN/BENJIE Conf#: [id number] DID#: [id number]
[2016-12-07] MEDS: SOD CHLORIDE 0.9% 1,000 ML IV SCH (15:15)
[2016-12-07 15:27] VITALS: BP 130/76; RESP 18
[2016-12-07] MEDS: GABAPENTIN 100 MG CAP PO SCH (21:06)
[2016-12-07 23:26] VITALS: BP 136/82; PULSE 102; RESP 16
[2016-12-08] MEDS: ACCU-CHEK XX SCH (02:00)
[2016-12-08] MEDS: morphine 2 MG INJ IV PRN ×5 (02:04→21:17)
[2016-12-08 02:07] VITALS: BP 151/96; RESP 16
[2016-12-08] MEDS: CIPROFLOXACIN 500 MG TAB PO SCH ×2 (06:27→18:06)
[2016-12-08] MEDS: PANTOPRAZOLE (EC) 40 MG TAB PO SCH (06:27)
[2016-12-08 07:35] VITALS: BP 159/98; RESP 18
[2016-12-08] MEDS: BISACODYL (EC) 5 MG TAB PO SCH ×2 (09:00→21:00)
[2016-12-08] MEDS: CHOLESTYRAMINE 4 GM PACKET PO SCH ×3 (09:00→21:00)
[2016-12-08] MEDS: MIRTAZAPINE 15 MG TAB PO SCH (09:26)
[2016-12-08] MEDS: ASPIRIN (EC) 81 MG TAB PO SCH (09:26)
[2016-12-08] MEDS: ARIPIPRAZOLE 5 MG TAB PO SCH (09:27)
[2016-12-08] MEDS: BETHANECHOL 25 MG TAB PO SCH ×3 (09:27→21:26)
[2016-12-08] MEDS: CYCLOBENZAPRINE 10 MG TAB PO SCH (09:27)
[2016-12-08] MEDS: SERTRALINE 50 MG TAB PO SCH (09:28)
[2016-12-08] MEDS: INSULIN ASPART [NOVOLOG] 3 ML PEN SC SCH ×4 (09:30→21:20)
[2016-12-08] MEDS: ENOXAPARIN 40 MG/0.4 ML SYG SC SCH (09:31)
[2016-12-08] MEDS: PHENYTOIN 100 MG CAP PO SCH ×3 (09:53→21:18)
[2016-12-08] MEDS: INSULIN GLARGINE [LANtus] 3 ML PEN SC SCH (09:57)
--- NOTE | 2016-12-08 10:18 | PN ---
DATE: 12/08/2016 SUBJECTIVE: The patient states that she is voiding better and as she did not have to be catheterize d. She denies any pain. OBJECTIVE VITAL SIGNS: Her temperature is 98.3, pulse 99, respiration 18, blood pressure 159/98. ABDOMEN: Soft and there is no tenderness. LABORATORY DATA: Her CBC shows a white count of 7.7, hemoglobin 8.4, hematocrit 26.9. The BUN is 1 0, creatinine 0.65. Last night she voided and her postvoid residual was 188, and earlier she did n ot void and they did a bladder scan. It was 410 and so they waited 2 hours and then she voiced and postvoid was 295. They did not catheterize her. However, yesterday she did not void and the bladde r volume was 551 and they catheterized her for 500. MEDICATIONS: The patient presently is on urecholine 25 mg 3 times a day. PLAN: We will continue to monitor her voiding and her postvoid residual. Do a straight catheteriza tion for postvoid residuals of over 300 and if she does not void and the bladder volume is over 500, do a straight catheterization as well. Dictated By: CLEMENTE LUJAN/BENJIE Conf#: [id number] DID#: [id number]
[2016-12-08] MEDS: SOD CHLORIDE 0.9% 1,000 ML IV SCH (12:48)
[2016-12-08 14:00] VITALS: BP 152/94; RESP 18
--- NOTE | 2016-12-08 18:39 | CONS ---
Date/Time of Note Date/Time of Note DATE: 12/08/16 TIME: 18:38 Assessment/Plan Assessment/Plan Chief Complaint/Hosp Course 41 y/o with # B/L hydroureteronephrosis and Urinary retention. Overflow incontinence due to neurogenic bladder due to MS # Urinary retention # Multiple sclerosis # DM # HTN Plan - Check PVR per Dr Ziegler and self cath as needed - Pt will be taught to do self cath, if does not tolerated will need marcelo cath - Will talk to Dr Ziegler as difficult for patient - c/w betahnecol - c/w Cipro - switch po pain meds Problems: Consultation Date/Type/Reason Admit Date/Time Nov 30, 2016 at 13:33 Initial Consult Date 12/05/16 Type of Consultation: Urology Referring Provider: MONA HARRIS MD 24 HR Interval Summary Free Text/Dictation Pt having diffuiculty with straight cath Spoke to nursing staff PVR >500 Exam/Review of Systems Vital Signs Vitals Vital Signs Date Time Temp Pulse Resp B/P Pulse Ox O2 Delivery O2 Flow Rate FiO2 12/08/16 14:00 97.9 102 18 152/94 100 12/07/16 23:26 Room Air Intake and Output 12/07/16 12/07/16 12/08/16 15:00 23:00 07:00 Intake Total 1500 ml 1580 ml Output Total 500 ml 1600 ml Balance 1000 ml -20 ml Exam Gen: Awake,alert, multple sclerosis Neck: supple Respiratory: clear to auscultation Cardiovascular: regular rate and rhythm Gastrointestinal: bowel sounds (+), No tender Extremities: No edema Results Result Diagram: 12/07/16 0438 12/07/16 0438 Results 24 hrs Laboratory Tests Test 12/07/16 21:18 12/08/16 08:51 12/08/16 12:45 12/08/16 17:30 Bedside Glucose 171 172 177 176 Medications Medications Current Medications Acetaminophen 650 mg 650 mg Q6H PRN PO PAIN AND OR ELEVATED TEMP Last administered on 12/01/16 01:40; Admin Dose 650 MG; Start 11/30/16 at 15:00 Sodium Chloride (NS) 1,000 ml @ 75 mls/hr [id number] IV Last administered on 12:48; Admin Dose 75 MLS/HR; Start 11/30/16 at 16:00 Diagnostic Test (Pha) (Accu-Chek) 1 ea 02 XX Last administered on 12/07/16 01 :42; Admin Dose 1 EA; Start 12/01/16 at 02:00 Phenytoin (Dilantin) 100 mg TID PO Last administered on 12/08/16 12:50; Admin Dose 100 MG; Start 11/30/16 at 21:00 Miscellaneous Information 1 ea NOTE XX ; Start 11/30/16 at 16:00 Glucose (Glutose) 15 gm Q15M PRN PO DECREASED GLUCOSE; Start 11/30/16 at 16:00 Glucose (Glutose) 22.5 gm Q15M PRN PO DECREASED GLUCOSE; Start 11/30/16 at 16: 00 Dextrose (D50w Syringe) 25 ml Q15M PRN IV DECREASED GLUCOSE; Start 11/30/16 at 16:00 Dextrose (D50w Syringe) 50 ml Q15M PRN IV DECREASED GLUCOSE; Start 11/30/16 at 16:00 Glucagon (Glucagen) 1 mg Q15M PRN IM DECREASED GLUCOSE; Start 11/30/16 at 16:00 Glucose (Glutose) 15 gm Q15M PRN BUCCAL DECREASED GLUCOSE Last administered on 12/04/16 02:37; Admin Dose 15 GM; Start 11/30/16 at 16:00 IV Flush (NS 10 ml) 10 ml PRN PRN IV IV PROTOCOL; Start 11/30/16 at 19:30 Sertraline HCl (Zoloft) 25 mg DAILY PO Last administered on 12/08/16 09:28; Admin Dose 25 MG; Start 12/01/16 at 09:00 Gabapentin (Neurontin) 200 mg HS PO Last administered on 12/07/16 21:06; Admin Dose 200 MG; Start 12/01/16 at 21:00 Aripiprazole (Abilify) 5 mg DAILY PO Last administered on 12/08/16 09:27; Admin Dose 5 MG; Start 12/01/16 at 09:00 Aspirin (Halfprin) 81 mg DAILY PO Last administered on 12/08/16 09:26; Admin Dose 81 MG; Start 12/01/16 at 09:00 Bisacodyl (Dulcolax) 10 mg BID PO Last administered on 12/07/16 21:05; Admin Dose 10 MG; Start 12/01/16 at 09:00 Cyclobenzaprine HCl (Flexeril) 10 mg DAILY PO Last administered on 12/08/16 09:27; Admin Dose 10 MG; Start 12/01/16 at 09:00 Mirtazapine (Remeron) 30 mg DAILY PO Last administered on 12/08/16 09:26; Admin Dose 30 MG; Start 12/01/16 at 09:00 Enoxaparin Sodium (Lovenox) 40 mg DAILY SC Last administered on 12/08/16 09: 31; Admin Dose 40 MG; Start 12/02/16 at 09:00 Pantoprazole (Protonix Tab) 40 mg DAILY@06 PO Last administered on 12/08/16 06:27; Admin Dose 40 MG; Start 12/03/16 at 06:00 Insulin Glargine (Lantus) 5 unit DAILY@08 SC Last administered on 12/08/16 09 :57; Admin Dose 5 UNIT; Start 12/04/16 at 08:00 Cholestyramine Resin (Questran) 1 pkt TID PO Last administered on 12/06/16 11 :08; Admin Dose 1 PKT; Start 12/05/16 at 21:00 Bethanechol Chloride (Urecholine) 25 mg TID PO Last administered on 12/08/16 12:51; Admin Dose 25 MG; Start 12/07/16 at 09:00 Ciprofloxacin (Cipro) 500 mg BID@06,18 PO Last administered on 12/08/16 18:06 ; Admin Dose 500 MG; Start 12/07/16 at 08:16 Morphine Sulfate (morphine) 2 mg Q4H PRN IV PAIN Last administered on 16:36; Admin Dose 2 MG; Start 12/07/16 at 15:00 JULIAN STEPHEN MD Dec 08, 2016 18:39
--- NOTE | 2016-12-08 19:10 | CONS ---
Date/Time of Note Date/Time of Note DATE: 12/08/16 TIME: 19:09 Assessment/Plan Assessment/Plan Additional Assessment/Plan Additional Assessment/Plan IMPRESSION: 1. 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 Weight loss. 3. Anemia. 4. Multiple sclerosis. 5. Wheelchair bound. 6. Hypertension. 7. Diabetes mellitus. 8. Incontinence of urine PLAN: At this point, is to send stool for analysis. CAT scan has been done and we will review it. The patient had a colonoscopy 2 years ago that was negative. She definitely needs a capsule endoscopy to rule out Crohn's disease. Will send stool for calprotectin and IBD serology. This will do it as an outpatient. In the interim, the patient will be placed on Questran for diarrhea., Urecholine for incontinence Questran Consultation Date/Type/Reason Admit Date/Time Nov 30, 2016 at 13:33 Type of Consultation: Urology Referring Provider: MONA HARRIS MD 24 HR Interval Summary Constitutional: improved Exam/Review of Systems Vital Signs Vitals Vital Signs Date Time Temp Pulse Resp B/P Pulse Ox O2 Delivery O2 Flow Rate FiO2 12/08/16 14:00 97.9 102 18 152/94 100 12/07/16 23:26 Room Air Intake and Output 12/07/16 12/07/16 12/08/16 15:00 23:00 07:00 Intake Total 1500 ml 1580 ml Output Total 500 ml 1600 ml Balance 1000 ml -20 ml Exam Constitutional: alert, oriented, well developed Psych: nl mood/affect, no complaints Head: atraumatic, normocephalic Eyes: EOMI, PERRL, nl conjunctiva, nl lids, nl sclera ENMT: nl external ears & nose, nl lips & teeth, nl nasal mucosa & septum Neck: non-tender, supple Respiratory: clear to auscultation, normal air movement Cardiovascular: nl pulses, regular rate and rhythm Gastrointestinal: nl liver, spleen, non-tender, soft Musculoskeletal: nl extremities to inspection, nl gait and stance Extremities: normal pulses Neurological: CONSTRUCTION ADMINISTRATIVE ASSISTANT II-XII intact, nl mental status, nl speech, nl strength Skin: nl turgor, No rash or lesions Lymph: nl lymph nodes Results Result Diagram: 12/07/16 0438 12/07/16 0438 Results 24 hrs Laboratory Tests Test 12/07/16 21:18 12/08/16 08:51 12/08/16 12:45 12/08/16 17:30 Bedside Glucose 171 172 177 176 Medications Medications Current Medications Acetaminophen (Tylenol Tab) 650 mg Q6H PRN PO PAIN AND OR ELEVATED TEMP Last administered on 12/01/16 01:40; Admin Dose 650 MG; Start 11/30/16 at 15:00 Diagnostic Test (Pha) (Accu-Chek) 1 ea 02 XX Last administered on 12/07/16 01 :42; Admin Dose 1 EA; Start 12/01/16 at 02:00 Phenytoin (Dilantin) 100 mg TID PO Last administered on 12/08/16 12:50; Admin Dose 100 MG; Start 11/30/16 at 21:00 Miscellaneous Information 1 ea NOTE XX ; Start 11/30/16 at 16:00 Glucose (Glutose) 15 gm Q15M PRN PO DECREASED GLUCOSE; Start 11/30/16 at 16:00 Glucose (Glutose) 22.5 gm Q15M PRN PO DECREASED GLUCOSE; Start 11/30/16 at 16: 00 Dextrose (D50w Syringe) 25 ml Q15M PRN IV DECREASED GLUCOSE; Start 11/30/16 at 16:00 Dextrose (D50w Syringe) 50 ml Q15M PRN IV DECREASED GLUCOSE; Start 11/30/16 at 16:00 Glucagon (Glucagen) 1 mg Q15M PRN IM DECREASED GLUCOSE; Start 11/30/16 at 16:00 Glucose (Glutose) 15 gm Q15M PRN BUCCAL DECREASED GLUCOSE Last administered on 12/04/16 02:37; Admin Dose 15 GM; Start 11/30/16 at 16:00 IV Flush (NS 10 ml) 10 ml PRN PRN IV IV PROTOCOL; Start 11/30/16 at 19:30 Sertraline HCl (Zoloft) 25 mg DAILY PO Last administered on 12/08/16 09:28; Admin Dose 25 MG; Start 12/01/16 at 09:00 Gabapentin (Neurontin) 200 mg HS PO Last administered on 12/07/16 21:06; Admin Dose 200 MG; Start 12/01/16 at 21:00 Aripiprazole (Abilify) 5 mg DAILY PO Last administered on 12/08/16 09:27; Admin Dose 5 MG; Start 12/01/16 at 09:00 Aspirin (Halfprin) 81 mg DAILY PO Last administered on 12/08/16 09:26; Admin Dose 81 MG; Start 12/01/16 at 09:00 Bisacodyl (Dulcolax) 10 mg BID PO Last administered on 12/07/16 21:05; Admin Dose 10 MG; Start 12/01/16 at 09:00 Cyclobenzaprine HCl (Flexeril) 10 mg DAILY PO Last administered on 12/08/16 09:27; Admin Dose 10 MG; Start 12/01/16 at 09:00 Mirtazapine (Remeron) 30 mg DAILY PO Last administered on 12/08/16 09:26; Admin Dose 30 MG; Start 12/01/16 at 09:00 Enoxaparin Sodium (Lovenox) 40 mg DAILY SC Last administered on 12/08/16 09: 31; Admin Dose 40 MG; Start 12/02/16 at 09:00 Pantoprazole (Protonix Tab) 40 mg DAILY@06 PO Last administered on 12/08/16 06:27; Admin Dose 40 MG; Start 12/03/16 at 06:00 Insulin Glargine (Lantus) 5 unit DAILY@08 SC Last administered on 12/08/16 09 :57; Admin Dose 5 UNIT; Start 12/04/16 at 08:00 Cholestyramine Resin (Questran) 1 pkt TID PO Last administered on 12/06/16 11 :08; Admin Dose 1 PKT; Start 12/05/16 at 21:00 Bethanechol Chloride (Urecholine) 25 mg TID PO Last administered on 12/08/16 12:51; Admin Dose 25 MG; Start 12/07/16 at 09:00 Ciprofloxacin (Cipro) 500 mg BID@,18 PO Last administered on 12/08/16 18:06 ; Admin Dose 500 MG; Start 12/07/16 at 08:16 Morphine Sulfate (morphine) 2 mg Q4H PRN IV PAIN Last administered on 16:36; Admin Dose 2 MG; Start 12/07/16 at 15:00 SHAHLA PAULINO MD Dec 08, 2016 19:10
[2016-12-08 20:08] VITALS: BP 172/104; RESP 18
[2016-12-08] MEDS: GABAPENTIN 100 MG CAP PO SCH (21:17)
[2016-12-09 00:12] VITALS: BP 160/91; PULSE 104; RESP 18
[2016-12-09] MEDS: morphine 2 MG INJ IV PRN ×4 (01:18→21:09)
[2016-12-09] MEDS: ACCU-CHEK XX SCH (01:29)
[2016-12-09] MEDS: PANTOPRAZOLE (EC) 40 MG TAB PO SCH (05:37)
[2016-12-09] MEDS: CIPROFLOXACIN 500 MG TAB PO SCH ×2 (05:43→08:41)
[2016-12-09 07:45] VITALS: BP 173/104; RESP 16
[2016-12-09] MEDS: MIRTAZAPINE 15 MG TAB PO SCH (08:39)
[2016-12-09] MEDS: ARIPIPRAZOLE 5 MG TAB PO SCH (08:39)
[2016-12-09] MEDS: CYCLOBENZAPRINE 10 MG TAB PO SCH (08:41)
[2016-12-09] MEDS: BETHANECHOL 25 MG TAB PO SCH ×3 (08:41→19:50)
[2016-12-09] MEDS: ASPIRIN (EC) 81 MG TAB PO SCH (08:41)
[2016-12-09] MEDS: PHENYTOIN 100 MG CAP PO SCH ×3 (08:41→19:50)
[2016-12-09] MEDS: SERTRALINE 50 MG TAB PO SCH (08:41)
[2016-12-09] MEDS: BISACODYL (EC) 5 MG TAB PO SCH ×2 (08:42→19:50)
[2016-12-09] MEDS: CHOLESTYRAMINE 4 GM PACKET PO SCH ×3 (08:42→19:50)
[2016-12-09] MEDS: INSULIN ASPART [NOVOLOG] 3 ML PEN SC SCH ×4 (08:45→19:53)
[2016-12-09] MEDS: INSULIN GLARGINE [LANtus] 3 ML PEN SC SCH (08:46)
[2016-12-09] MEDS: ENOXAPARIN 40 MG/0.4 ML SYG SC SCH (08:46)
--- NOTE | 2016-12-09 13:23 | PN ---
Date/Time of Note Date/Time of Note DATE: 12/09/16 TIME: 13:20 Assessment/Plan VTE Prophylaxis VTE Prophylaxis Intervention: LMWH Lines/Catheters IV Catheter Type (from Nrsg): PICC Line Central line still needed: Yes Urinary Cath still in place: No Assessment/Plan Chief Complaint/Hosp Course 41 y/o with # B/L hydroureteronephrosis and Urinary retention. Overflow incontinence due to neurogenic bladder due to MS # Urinary retention # Multiple sclerosis # DM # HTN uncontrolled Plan - Pt was taught to do self cath but unable to do - Spoke to Dr Ziegler, will get Marcelo but pt needs strict marcelo care arranged before being discharged - Add benazepril - c/w betahnecol - c/w Cipro - switch po pain meds Problems: Subjective 24 Hr Interval Summary Free Text/Dictation Bp high Pt unable to do straight cath by herself Exam/Review of Systems Vital Signs Vitals Vital Signs Date Time Temp Pulse Resp B/P Pulse Ox O2 Delivery O2 Flow Rate FiO2 12/09/16 07:45 98.2 100 16 173/104 100 12/07/16 23:26 Room Air Intake and Output 12/08/16 12/08/16 12/09/16 15:00 23:00 07:00 Intake Total 1470 ml 850 ml Output Total 975 ml 1300 ml Balance 495 ml -450 ml Exam Gen: Awake,alert, multple sclerosis Neck: supple Respiratory: clear to auscultation Cardiovascular: regular rate and rhythm Gastrointestinal: bowel sounds (+), No tender Extremities: No edema contractures of extremities Results Result Diagram: 12/07/16 0438 12/07/16 0438 Results 24 hrs Laboratory Tests Test 12/08/16 17:30 12/08/16 21:13 12/09/16 01:24 12/09/16 08:37 Bedside Glucose 176 194 188 171 Test 12/09/16 12:38 Bedside Glucose 229 H Medications Medications Current Medications Acetaminophen (Tylenol Tab) 650 mg Q6H PRN PO PAIN AND OR ELEVATED TEMP Last administered on 12/01/16 01:40; Admin Dose 650 MG; Start 11/30/16 at 15:00 Diagnostic Test (Pha) (Accu-Chek) 1 ea 02 XX Last administered on 12/09/16 01 :29; Admin Dose 1 EA; Start 12/01/16 at 02:00 Phenytoin (Dilantin) 100 mg TID PO Last administered on 12/09/16 12:40; Admin Dose 100 MG; Start 11/30/16 at 21:00 Miscellaneous Information 1 ea NOTE XX ; Start 11/30/16 at 16:00 Glucose (Glutose) 15 gm Q15M PRN PO DECREASED GLUCOSE; Start 11/30/16 at 16:00 Glucose (Glutose) 22.5 gm Q15M PRN PO DECREASED GLUCOSE; Start 11/30/16 at 16: 00 Dextrose (D50w Syringe) 25 ml Q15M PRN IV DECREASED GLUCOSE; Start 11/30/16 at 16:00 Dextrose (D50w Syringe) 50 ml Q15M PRN IV DECREASED GLUCOSE; Start 11/30/16 at 16:00 Glucagon (Glucagen) 1 mg Q15M PRN IM DECREASED GLUCOSE; Start 11/30/16 at 16:00 Glucose (Glutose) 15 gm Q15M PRN BUCCAL DECREASED GLUCOSE Last administered on 12/04/16 02:37; Admin Dose 15 GM; Start 11/30/16 at 16:00 IV Flush (NS 10 ml) 10 ml PRN PRN IV IV PROTOCOL; Start 11/30/16 at 19:30 Sertraline HCl (Zoloft) 25 mg DAILY PO Last administered on 12/09/16 08:41; Admin Dose 25 MG; Start 12/01/16 at 09:00 Gabapentin (Neurontin) 200 mg HS PO Last administered on 12/08/16 21:17; Admin Dose 200 MG; Start 12/01/16 at 21:00 Aripiprazole (Abilify) 5 mg DAILY PO Last administered on 12/09/16 08:39; Admin Dose 5 MG; Start 12/01/16 at 09:00 Aspirin (Halfprin) 81 mg DAILY PO Last administered on 12/09/16 08:41; Admin Dose 81 MG; Start 12/01/16 at 09:00 Bisacodyl (Dulcolax) 10 mg BID PO Last administered on 12/07/16 21:05; Admin Dose 10 MG; Start 12/01/16 at 09:00 Cyclobenzaprine HCl (Flexeril) 10 mg DAILY PO Last administered on 12/09/16 08:41; Admin Dose 10 MG; Start 12/01/16 at 09:00 Mirtazapine (Remeron) 30 mg DAILY PO Last administered on 12/09/16 08:39; Admin Dose 30 MG; Start 12/01/16 at 09:00 Enoxaparin Sodium (Lovenox) 40 mg DAILY SC Last administered on 12/09/16 08: 46; Admin Dose 40 MG; Start 12/02/16 at 09:00 Pantoprazole (Protonix Tab) 40 mg DAILY@06 PO Last administered on 12/09/16 05:37; Admin Dose 40 MG; Start 12/03/16 at 06:00 Insulin Glargine (Lantus) 5 unit DAILY@08 SC Last administered on 12/09/16 08 :46; Admin Dose 5 UNIT; Start 12/04/16 at 08:00 Cholestyramine Resin (Questran) 1 pkt TID PO Last administered on 12/06/16 11 :08; Admin Dose 1 PKT; Start 12/05/16 at 21:00 Bethanechol Chloride (Urecholine) 25 mg TID PO Last administered on 12/09/16 12:52; Admin Dose 25 MG; Start 12/07/16 at 09:00 Ciprofloxacin (Cipro) 500 mg BID@ PO Last administered on 12/09/16 08:41 ; Admin Dose 500 MG; Start 12/07/16 at 08:16 Morphine Sulfate (morphine) 2 mg Q4H PRN IV PAIN Last administered on 05:39; Admin Dose 2 MG; Start 12/07/16 at 15:00 Benazepril HCl (Lotensin) 20 mg DAILY PO ; Start 12/09/16 at 13:30; Status JULIAN CANAS MD Dec 09, 2016 13:23
--- NOTE | 2016-12-09 14:33 | PN ---
DATE: 12/09/2016 SUBJECTIVE: Urinary retention and patient does have multiple sclerosis with neurogenic bladder. Urinary retention and bilateral hydronephrosis. Attempts were made to try to teach her to do self-c atheterization, but she does have problems with her hand contractures and she could not see well to do the self-catheterization. She has been started on Urecholine 25 mg 3 times a day with the hope t hat would help. The patient does urinate a small amount but she still has a high postvoid residual. OBJECTIVE: VITAL SIGNS: Temperature is 98.2, pulse is 100, respirations 16, blood pressure 173/104. ABDOMEN: Soft. LABORATORY DATA: Her last CBC shows a white count of 7.7, hemoglobin 8.4, hematocrit 26.9 and the p atient had a postvoid residual of over 500. Since she is having difficulty learning to do the catheterization, therefore, the other option would be to have an indwelling Barboza catheter and have the home health visit her and change the Barboza cat heter at least once a month or earlier if needed and the patient will follow up with her primary car e physician and if there is a need they could always refer her to me. Dictated By: CLEMENTE LUJAN/BENJIE Conf#: [id number] DID#: [id number]
[2016-12-09 15:15] VITALS: BP 161/98; PULSE 98; RESP 16
[2016-12-09] MEDS: BENAZEPRIL 20 MG TAB PO SCH (15:25)
[2016-12-09] MEDS: GABAPENTIN 100 MG CAP PO SCH (19:50)
[2016-12-09 21:34] VITALS: BP 178/111; RESP 20
[2016-12-09 21:50] VITALS: BP 172/97; PULSE 94
[2016-12-10] VITALS (8 sets, daily range): BP systolic 120–171; BP diastolic 77–111; PULSE 94–103; RESP 18–20
[2016-12-10] MEDS: morphine 2 MG INJ IV PRN ×5 (00:55→21:00)
[2016-12-10] MEDS: ACCU-CHEK XX SCH (02:13)
[2016-12-10] MEDS: PANTOPRAZOLE (EC) 40 MG TAB PO SCH (05:07)
[2016-12-10] MEDS: CIPROFLOXACIN 500 MG TAB PO SCH ×2 (05:07→17:56)
[2016-12-10] MEDS: SERTRALINE 50 MG TAB PO SCH (08:43)
[2016-12-10] MEDS: BISACODYL (EC) 5 MG TAB PO SCH ×3 (08:43→21:33)
[2016-12-10] MEDS: BETHANECHOL 25 MG TAB PO SCH ×3 (08:43→21:33)
[2016-12-10] MEDS: ARIPIPRAZOLE 5 MG TAB PO SCH (08:43)
[2016-12-10] MEDS: MIRTAZAPINE 15 MG TAB PO SCH (08:43)
[2016-12-10] MEDS: CYCLOBENZAPRINE 10 MG TAB PO SCH (08:45)
[2016-12-10] MEDS: ASPIRIN (EC) 81 MG TAB PO SCH (08:45)
[2016-12-10] MEDS: BENAZEPRIL 20 MG TAB PO SCH ×2 (08:45→21:33)
[2016-12-10] MEDS: PHENYTOIN 100 MG CAP PO SCH ×3 (08:45→21:31)
[2016-12-10] MEDS: ENOXAPARIN 40 MG/0.4 ML SYG SC SCH (08:47)
[2016-12-10] MEDS: INSULIN GLARGINE [LANtus] 3 ML PEN SC SCH ×2 (08:49→21:30)
[2016-12-10] MEDS: INSULIN ASPART [NOVOLOG] 3 ML PEN SC SCH ×4 (08:50→21:29)
[2016-12-10] MEDS: CHOLESTYRAMINE 4 GM PACKET PO SCH ×3 (09:00→21:00)
--- NOTE | 2016-12-10 10:41 | PN ---
DATE: 12/10/2016 SUBJECTIVE: The patient has some suprapubic discomfort and mild pain. The patient does have a hist ory of MS and neurogenic bladder and urinary retention. She has been getting intermittent catheteri zation because of high postvoid residual. PHYSICAL EXAMINATION: VITAL SIGNS: Her temperature is 97.8, pulse is 82, respiration 18, blood pressure 171/100. ABDOMEN: Soft. There is no tenderness. LABORATORY DATA: Blood sugar has been high, about 211, 219 240. The patient has been getting david terization. The bladder scan has been showing 487 and 535 mL. She has been receiving in and out ca theterization. IMPRESSION: 1. Urinary retention. 2. History of multiple sclerosis and neurogenic bladder. The patient is not capable of learning an d doing her intermittent catheterization because of problems with her hands. PLAN: To insert a Barboza catheter and keep it in and have home health nurse visiting her and change the catheter for her once a month or earlier if the catheter is blocked. Dictated By: CLEMENTE LUJNA/BENJIE Conf#: [id number] DID#: [id number]
[2016-12-10] MEDS ORDERED: HYDROmorphONE 1 MG/ML SYG IV STA (16:27)
[2016-12-10] MEDS ORDERED: BISACODYL 10 MG SUPP PR PRN (16:30)
--- NOTE | 2016-12-10 16:44 | PN ---
Date/Time of Note Date/Time of Note DATE: 12/10/16 TIME: 16:42 Assessment/Plan VTE Prophylaxis VTE Prophylaxis Intervention: LMWH Lines/Catheters IV Catheter Type (from Nrsg): PICC Line Central line still needed: Yes Urinary Cath still in place: Yes Reason Cath still needed: urinary retention Assessment/Plan Chief Complaint/Hosp Course 41 y/o with # B/L hydroureteronephrosis and Urinary retention. Overflow incontinence due to neurogenic bladder due to MS # Urinary retention # Multiple sclerosis # DM # HTN uncontrolled Plan - Pt was taught to do self cath but unable to do - Spoke to Dr Ziegler, c/w Marcelo but pt needs strict marcelo care arranged before being discharged - increase benazepril - c/w betahnecol - c/w Cipro - increase lantus - brand communications manager to arrange for home care, marcelo care and wheelchair for dc tmw Problems: Subjective 24 Hr Interval Summary Free Text/Dictation BP uncontrolled spoke to transplant case manager regarding arrnaging for home health vs SNIF Exam/Review of Systems Vital Signs Vitals Vital Signs Date Time Temp Pulse Resp B/P Pulse Ox O2 Delivery O2 Flow Rate FiO2 12/10/16 14:34 98.2 101 18 134/85 100 12/09/16 15:15 Room Air Intake and Output 12/09/16 12/09/16 12/10/16 15:00 23:00 07:00 Intake Total 1460 ml 700 ml Output Total 1300 ml 1100 ml Balance 160 ml -400 ml Exam Gen: Awake,alert, multple sclerosis Neck: supple Respiratory: clear to auscultation Cardiovascular: regular rate and rhythm Gastrointestinal: bowel sounds (+), No tender Extremities: No edema contractures of extremities Results Result Diagram: 12/07/16 0438 12/07/16 0438 Results 24 hrs Laboratory Tests Test 12/09/16 17:45 12/09/16 19:48 12/10/16 01:59 12/10/16 08:38 Bedside Glucose 240 H 219 211 198 Test 12/10/16 12:38 Bedside Glucose 258 H Medications Medications Current Medications Acetaminophen (Tylenol Tab) 650 mg Q6H PRN PO PAIN AND OR ELEVATED TEMP Last administered on 12/01/16t 01:40; Admin Dose 650 MG; Start 11/30/16 at 15:00 Diagnostic Test (Pha) (Accu-Chek) 1 ea 02 XX Last administered on 12/10/16 02 :13; Admin Dose 1 EA; Start 12/01/16 at 02:00 Phenytoin (Dilantin) 100 mg TID PO Last administered on 12/10/16 13:08; Admin Dose 100 MG; Start 11/30/16 at 21:00 Miscellaneous Information 1 ea NOTE XX ; Start 11/30/16 at 16:00 Glucose (Glutose) 15 gm Q15M PRN PO DECREASED GLUCOSE; Start 11/30/16 at 16:00 Glucose (Glutose) 22.5 gm Q15M PRN PO DECREASED GLUCOSE; Start 11/30/16 at 16: 00 Dextrose (D50w Syringe) 25 ml Q15M PRN IV DECREASED GLUCOSE; Start 11/30/16 at 16:00 Dextrose (D50w Syringe) 50 ml Q15M PRN IV DECREASED GLUCOSE; Start 11/30/16 at 16:00 Glucagon (Glucagen) 1 mg Q15M PRN IM DECREASED GLUCOSE; Start 11/30/16 at 16:00 Glucose (Glutose) 15 gm Q15M PRN BUCCAL DECREASED GLUCOSE Last administered on 12/04/16 02:37; Admin Dose 15 GM; Start 11/30/16 at 16:00 IV Flush (NS 10 ml) 10 ml PRN PRN IV IV PROTOCOL; Start 11/30/16 at 19:30 Sertraline HCl (Zoloft) 25 mg DAILY PO Last administered on 12/10/16 08:43; Admin Dose 25 MG; Start 12/01/16 at 09:00 Gabapentin (Neurontin) 200 mg HS PO Last administered on 12/09/16 19:50; Admin Dose 200 MG; Start 12/01/16 at 21:00 Aripiprazole (Abilify) 5 mg DAILY PO Last administered on 12/10/16 08:43; Admin Dose 5 MG; Start 12/01/16 at 09:00 Aspirin (Halfprin) 81 mg DAILY PO Last administered on 12/10/16 08:45; Admin Dose 81 MG; Start 12/01/16 at 09:00 Bisacodyl (Dulcolax) 10 mg BID PO Last administered on 12/10/16 13:09; Admin Dose 10 MG; Start 12/01/16 at 09:00 Cyclobenzaprine HCl (Flexeril) 10 mg DAILY PO Last administered on 12/10/16 08:45; Admin Dose 10 MG; Start 12/01/16 at 09:00 Mirtazapine (Remeron) 30 mg DAILY PO Last administered on 12/10/16 08:43; Admin Dose 30 MG; Start 12/01/16 at 09:00 Enoxaparin Sodium (Lovenox) 40 mg DAILY SC Last administered on 12/10/16 08: 47; Admin Dose 40 MG; Start 12/02/16 at 09:00 Pantoprazole (Protonix Tab) 40 mg DAILY@06 PO Last administered on 12/10/16 05:07; Admin Dose 40 MG; Start 12/03/16 at 06:00 Insulin Glargine (Lantus) 5 unit DAILY@08 SC Last administered on 12/10/16 08 :49; Admin Dose 5 UNIT; Start 12/04/16 at 08:00 Cholestyramine Resin (Questran) 1 pkt TID PO Last administered on 12/06/16 11 :08; Admin Dose 1 PKT; Start 12/05/16 at 21:00 Bethanechol Chloride (Urecholine) 25 mg TID PO Last administered on 12/10/16 13:08; Admin Dose 25 MG; Start 12/07/16 at 09:00 Ciprofloxacin (Cipro) 500 mg BID@,18 PO Last administered on 12/10/16 05:07 ; Admin Dose 500 MG; Start 12/07/16 at 08:16 Morphine Sulfate (morphine) 2 mg Q4H PRN IV PAIN Last administered on 13:50; Admin Dose 2 MG; Start 12/07/16 at 15:00 Clonidine (Catapres) 0.1 mg Q6H PRN PO ELEVATED BLOOD PRESSURE Last administered on 12/09/16 22:11; Admin Dose 0.1 MG; Start 12/09/16 at 22:30 Bisacodyl (Dulcolax Supp) 10 mg ONCE PRN [place] constipation; Start 12/10/16 at 16 :30; Stop 12/10/16 at 23:56 Benazepril HCl (Lotensin) 20 mg BID PO ; Start 12/10/16 at 21:00; Status UNV JULIAN STEPHEN MD Dec 10, 2016 16:44
[2016-12-10] MEDS: GABAPENTIN 100 MG CAP PO SCH (21:31)
[2016-12-11] MEDS: morphine 2 MG INJ IV PRN ×2 (01:00→04:52)
[2016-12-11 02:05] VITALS: BP 171/102; RESP 18
[2016-12-11] MEDS: ACCU-CHEK XX SCH (02:07)
[2016-12-11] MEDS: ACETAMINOPHEN 325 MG TAB PO PRN (03:17)
[2016-12-11] MEDS ORDERED: OXYCODONE/ACETAMINOPHEN (5/325) TAB PO PRN (06:00)
[2016-12-11] MEDS: OXYCODONE/ACETAMINOPHEN (5/325) TAB PO PRN ×3 (06:09→19:46)
[2016-12-11] MEDS: CIPROFLOXACIN 500 MG TAB PO SCH ×2 (06:10→17:56)
[2016-12-11] MEDS: PANTOPRAZOLE (EC) 40 MG TAB PO SCH (06:11)
[2016-12-11 07:01] LABS: CALCIUM 8.6 mg/dl (8.4-10.2); CREATININE 0.76 mg/dl (0.44-1.00); POTASSIUM 4.7 mmol/L (3.5-5.1)
[2016-12-11 08:00] VITALS: BP 124/83; RESP 19
--- NOTE | 2016-12-11 08:16 | PN ---
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 The patient does have a history of urinary incontinence and does wear diapers at home. she does have overflow incontinence secondary to neurogenic bladder which is secondary to her multiple sclerosis. I had a long discussion with the patient about the treatment of this condition including self intermittent catheterization, indwelling Barboza catheter, there was difficulty by the patient learning to do the self-catheterization ,therefore it was decided to insert a Barboza catheter and have home health nurse visit her, check her catheter and change it every months or earlier if needed Problems: Subjective 24 Hr Interval Summary Constitutional: no complaints Eyes: no complaints ENT: no complaints Respiratory: no complaints Cardiovascular: no complaints Gastrointestinal: no complaints Genitourinary: other (Complains of pain from the Barboza catheter, states she cannot lay on her left side and concerned if she has any hemorrhoids) Musculoskeletal: no complaints Skin: no complaints Neurologic: other (MS symptoms) Endocrine: no complaints Psychological: anxiety Exam/Review of Systems Vital Signs Vitals Vital Signs Date Time Temp Pulse Resp B/P Pulse Ox O2 Delivery O2 Flow Rate FiO2 12/11/16 02:05 98.4 104 18 171/102 99 12/10/16 21:13 Room Air Intake and Output 12/10/16 12/10/16 12/11/16 15:00 23:00 07:00 Intake Total 800 ml Output Total 1100 ml Balance -300 ml Exam Constitutional: alert, oriented Psych: anxiety Head: atraumatic Eyes: nl conjunctiva ENMT: nl external ears & nose Neck: non-tender Respiratory: normal air movement Cardiovascular: No edema Gastrointestinal: soft Genitourinary - Female: other (Barboza catheter in place and draining clear urine ), No CVA tenderness Musculoskeletal: muscle weakness Extremities: other (Contracture of fingers), No calf tenderness Neurological: other (Weakness in lower extremities) Results Result Diagram: 12/07/16 0438 12/11/16 0450 Results 24 hrs Laboratory Tests Test 12/10/16 08:38 12/10/16 12:38 12/10/16 17:52 12/10/16 21:24 Bedside Glucose 198 258 H 215 231 H Test 12/11/16 02:06 12/11/16 04:50 Bedside Glucose 234 H Sodium Level 136 Potassium Level 4.7 Chloride Level 102 Carbon Dioxide Level 25 Anion Gap 14 Blood Urea Nitrogen 26 H Creatinine 0.76 Glucose Level 234 H Calcium Level 8.6 Medications Medications Current Medications Acetaminophen (Tylenol Tab) 650 mg Q6H PRN PO PAIN AND OR ELEVATED TEMP Last administered on 12/11/16 03:17; Admin Dose 650 MG; Start 11/30/16 at 15:00 Diagnostic Test (Pha) (Accu-Chek) 1 ea 02 XX Last administered on 12/11/16 02 :07; Admin Dose 1 EA; Start 12/01/16 at 02:00 Phenytoin (Dilantin) 100 mg TID PO Last administered on 12/10/16 21:31; Admin Dose 100 MG; Start 11/30/16 at 21:00 Miscellaneous Information 1 ea NOTE XX ; Start 11/30/16 at 16:00 Glucose (Glutose) 15 gm Q15M PRN PO DECREASED GLUCOSE; Start 11/30/16 at 16:00 Glucose (Glutose) 22.5 gm Q15M PRN PO DECREASED GLUCOSE; Start 11/30/16 at 16: 00 Dextrose (D50w Syringe) 25 ml Q15M PRN IV DECREASED GLUCOSE; Start 11/30/16 at 16:00 Dextrose (D50w Syringe) 50 ml Q15M PRN IV DECREASED GLUCOSE; Start 11/30/16 at 16:00 Glucagon (Glucagen) 1 mg Q15M PRN IM DECREASED GLUCOSE; Start 11/30/16 at 16:00 Glucose (Glutose) 15 gm Q15M PRN BUCCAL DECREASED GLUCOSE Last administered on 12/04/16 02:37; Admin Dose 15 GM; Start 11/30/16 at 16:00 IV Flush (NS 10 ml) 10 ml PRN PRN IV IV PROTOCOL; Start 11/30/16 at 19:30 Sertraline HCl (Zoloft) 25 mg DAILY PO Last administered on 12/10/16 08:43; Admin Dose 25 MG; Start 12/01/16 at 09:00 Gabapentin (Neurontin) 200 mg HS PO Last administered on 12/10/16 21:31; Admin Dose 200 MG; Start 12/01/16 at 21:00 Aripiprazole (Abilify) 5 mg DAILY PO Last administered on 12/10/16 08:43; Admin Dose 5 MG; Start 12/01/16 at 09:00 Aspirin (Halfprin) 81 mg DAILY PO Last administered on 12/10/16 08:45; Admin Dose 81 MG; Start 12/01/16 at 09:00 Bisacodyl (Dulcolax) 10 mg BID PO Last administered on 12/10/16 21:33; Admin Dose 10 MG; Start 12/01/16 at 09:00 Cyclobenzaprine HCl (Flexeril) 10 mg DAILY PO Last administered on 12/10/16 08:45; Admin Dose 10 MG; Start 12/01/16 at 09:00 Mirtazapine (Remeron) 30 mg DAILY PO Last administered on 12/10/16 08:43; Admin Dose 30 MG; Start 12/01/16 at 09:00 Enoxaparin Sodium (Lovenox) 40 mg DAILY SC Last administered on 12/10/16 08: 47; Admin Dose 40 MG; Start 12/02/16 at 09:00 Pantoprazole (Protonix Tab) 40 mg DAILY@06 PO Last administered on 12/11/16 06:11; Admin Dose 40 MG; Start 12/03/16 at 06:00 Cholestyramine Resin (Questran) 1 pkt TID PO Last administered on 12/06/16 11 :08; Admin Dose 1 PKT; Start 12/05/16 at 21:00 Bethanechol Chloride (Urecholine) 25 mg TID PO Last administered on 12/10/16 21:33; Admin Dose 25 MG; Start 12/07/16 at 09:00 Ciprofloxacin (Cipro) 500 mg BID@,18 PO Last administered on 12/11/16 06:10 ; Admin Dose 500 MG; Start 12/07/16 at 08:16 Clonidine (Catapres) 0.1 mg Q6H PRN PO ELEVATED BLOOD PRESSURE Last administered on 12/11/16 03:16; Admin Dose 0.1 MG; Start 12/09/16 at 22:30 Benazepril HCl (Lotensin) 20 mg BID PO Last administered on 12/10/16 21:33; Admin Dose 20 MG; Start 12/10/16 at 21:00 Insulin Glargine (Lantus) 5 unit BID SC Last administered on 12/10/16 21:30; Admin Dose 5 UNIT; Start 12/10/16 at 21:00 Oxycodone/ Acetaminophen (Percocet (5/ 325)) 1 tab Q6H PRN PO PAIN LEVEL 1-5; Start 12/11/16 at 06:00 Oxycodone/ Acetaminophen (Percocet (5/ 325)) 2 tab Q6H PRN PO PAIN LEVEL 6-10 Last administered on 12/11/16 06:09; Admin Dose 2 TAB; Start 12/11/16 at 06: 00 CLEMENTE WOOD MD Dec 11, 2016 08:16
[2016-12-11] MEDS: MIRTAZAPINE 15 MG TAB PO SCH (08:54)
[2016-12-11] MEDS: CYCLOBENZAPRINE 10 MG TAB PO SCH (08:54)
[2016-12-11] MEDS: BENAZEPRIL 20 MG TAB PO SCH ×2 (08:54→20:45)
[2016-12-11] MEDS: BETHANECHOL 25 MG TAB PO SCH ×3 (08:54→20:43)
[2016-12-11] MEDS: BISACODYL (EC) 5 MG TAB PO SCH ×2 (08:55→20:44)
[2016-12-11] MEDS: PHENYTOIN 100 MG CAP PO SCH ×3 (08:55→20:44)
[2016-12-11] MEDS: ARIPIPRAZOLE 5 MG TAB PO SCH (08:55)
[2016-12-11] MEDS: SERTRALINE 50 MG TAB PO SCH (08:55)
[2016-12-11] MEDS: ASPIRIN (EC) 81 MG TAB PO SCH (08:55)
[2016-12-11] MEDS: ENOXAPARIN 40 MG/0.4 ML SYG SC SCH (08:57)
[2016-12-11] MEDS: INSULIN GLARGINE [LANtus] 3 ML PEN SC SCH ×2 (08:58→20:46)
[2016-12-11] MEDS: CHOLESTYRAMINE 4 GM PACKET PO SCH ×3 (08:59→20:45)
[2016-12-11] MEDS: INSULIN ASPART [NOVOLOG] 3 ML PEN SC SCH ×4 (08:59→20:49)
--- NOTE | 2016-12-11 09:40 | PN ---
Date/Time of Note Date/Time of Note DATE: 12/11/16 TIME: 09:40 Assessment/Plan VTE Prophylaxis VTE Prophylaxis Intervention: contraindicated Lines/Catheters IV Catheter Type (from Nrsg): PICC Line Central line still needed: Yes Urinary Cath still in place: Yes Reason Cath still needed: urinary retention Assessment/Plan Chief Complaint/Hosp Course 41 y/o with # B/L hydroureteronephrosis and Urinary retention. Overflow incontinence due to neurogenic bladder due to MS # Urinary retention # Multiple sclerosis # DM # HTN uncontrolled>controlled now Plan - Pt was taught to do self cath but unable to do - Spoke to Dr Ziegler, c/w Marcelo but pt needs strict marcelo care arranged before being discharged - c/w benazepril - Will restart coumadin today and will need briding, check PT/INR - c/w betahnecol - c/w Cipro - C/W lantus - manager continuous improvement to arrange for home care, marcelo care and wheelchair for dc Problems: Subjective 24 Hr Interval Summary Free Text/Dictation bladder spasms this am Pt WAS ALL SET TO GO but was on coumadin before which was stopped Repeat U/S of leg shows chronic RLE dvt Exam/Review of Systems Vital Signs Vitals Vital Signs Date Time Temp Pulse Resp B/P Pulse Ox O2 Delivery O2 Flow Rate FiO2 12/11/16 08:00 98.0 96 19 124/83 98 12/10/16 21:13 Room Air Intake and Output 12/10/16 12/10/16 12/11/16 15:00 23:00 07:00 Intake Total 800 ml Output Total 1100 ml Balance -300 ml Exam en: Awake,alert, multple sclerosis Neck: supple Respiratory: clear to auscultation Cardiovascular: regular rate and rhythm Gastrointestinal: bowel sounds (+), No tender Extremities: No edema contractures of extremities Results Result Diagram: 12/07/16 0438 12/11/16 0450 Results 24 hrs Laboratory Tests Test 12/10/16 12:38 12/10/16 17:52 12/10/16 21:24 12/11/16 02:06 Bedside Glucose 258 H 215 231 H 234 H Test 12/11/16 04:50 12/11/16 08:20 Sodium Level 136 Potassium Level 4.7 Chloride Level 102 Carbon Dioxide Level 25 Anion Gap 14 Blood Urea Nitrogen 26 H Creatinine 0.76 Glucose Level 234 H Calcium Level 8.6 Bedside Glucose 239 H Medications Medications Current Medications Acetaminophen (Tylenol Tab) 650 mg Q6H PRN PO PAIN AND OR ELEVATED TEMP Last administered on 12/11/16 03:17; Admin Dose 650 MG; Start 11/30/16 at 15:00 Diagnostic Test (Pha) (Accu-Chek) 1 ea 02 XX Last administered on 12/11/16 02 :07; Admin Dose 1 EA; Start 12/01/16 at 02:00 Phenytoin (Dilantin) 100 mg TID PO Last administered on 12/11/16 08:55; Admin Dose 100 MG; Start 11/30/16 at 21:00 Miscellaneous Information 1 ea NOTE XX ; Start 11/30/16 at 16:00 Glucose (Glutose) 15 gm Q15M PRN PO DECREASED GLUCOSE; Start 11/30/16 at 16:00 Glucose (Glutose) 22.5 gm Q15M PRN PO DECREASED GLUCOSE; Start 11/30/16 at 16: 00 Dextrose (D50w Syringe) 25 ml Q15M PRN IV DECREASED GLUCOSE; Start 11/30/16 at 16:00 Dextrose (D50w Syringe) 50 ml Q15M PRN IV DECREASED GLUCOSE; Start 11/30/16 at 16:00 Glucagon (Glucagen) 1 mg Q15M PRN IM DECREASED GLUCOSE; Start 11/30/16 at 16:00 Glucose (Glutose) 15 gm Q15M PRN BUCCAL DECREASED GLUCOSE Last administered on 12/04/16 02:37; Admin Dose 15 GM; Start 11/30/16 at 16:00 IV Flush (NS 10 ml) 10 ml PRN PRN IV IV PROTOCOL; Start 11/30/16 at 19:30 Sertraline HCl (Zoloft) 25 mg DAILY PO Last administered on 12/11/16 08:55; Admin Dose 25 MG; Start 12/01/16 at 09:00 Gabapentin (Neurontin) 200 mg HS PO Last administered on 12/10/16 21:31; Admin Dose 200 MG; Start 12/01/16 at 21:00 Aripiprazole (Abilify) 5 mg DAILY PO Last administered on 12/11/16 08:55; Admin Dose 5 MG; Start 12/01/16 at 09:00 Aspirin (Halfprin) 81 mg DAILY PO Last administered on 12/11/16 08:55; Admin Dose 81 MG; Start 12/01/16 at 09:00 Bisacodyl (Dulcolax) 10 mg BID PO Last administered on 12/11/16 08:55; Admin Dose 10 MG; Start 12/01/16 at 09:00 Cyclobenzaprine HCl (Flexeril) 10 mg DAILY PO Last administered on 12/11/16 08:54; Admin Dose 10 MG; Start 12/01/16 at 09:00 Mirtazapine (Remeron) 30 mg DAILY PO Last administered on 12/11/16 08:54; Admin Dose 30 MG; Start 12/01/16 at 09:00 Enoxaparin Sodium (Lovenox) 40 mg DAILY SC Last administered on 12/11/16 08: 57; Admin Dose 40 MG; Start 12/02/16 at 09:00 Pantoprazole (Protonix Tab) 40 mg DAILY@06 PO Last administered on 12/11/16 06:11; Admin Dose 40 MG; Start 12/03/16 at 06:00 Cholestyramine Resin (Questran) 1 pkt TID PO Last administered on 12/11/16 08 :59; Admin Dose 1 PKT; Start 12/05/16 at 21:00 Bethanechol Chloride (Urecholine) 25 mg TID PO Last administered on 12/11/16 08:54; Admin Dose 25 MG; Start 12/07/16 at 09:00 Ciprofloxacin (Cipro) 500 mg BID@18 PO Last administered on 12/11/16 06:10 ; Admin Dose 500 MG; Start 12/07/16 at 08:16 Clonidine (Catapres) 0.1 mg Q6H PRN PO ELEVATED BLOOD PRESSURE Last administered on 12/11/16 03:16; Admin Dose 0.1 MG; Start 12/09/16 at 22:30 Benazepril HCl (Lotensin) 20 mg BID PO Last administered on 12/11/16 08:54; Admin Dose 20 MG; Start 12/10/16 at 21:00 Insulin Glargine (Lantus) 5 unit BID SC Last administered on 12/11/16 08:58; Admin Dose 5 UNIT; Start 12/10/16 at 21:00 Oxycodone/ Acetaminophen (Percocet (5/ 325)) 1 tab Q6H PRN PO PAIN LEVEL 1-5; Start 12/11/16 at 06:00 Oxycodone/ Acetaminophen (Percocet (5/ 325)) 2 tab Q6H PRN PO PAIN LEVEL 6-10 Last administered on 12/11/16t 06:09; Admin Dose 2 TAB; Start 12/11/16 at 06: 00 JULIAN STEPHEN MD Dec 11, 2016 09:40
--- NOTE | 2016-12-11 09:41 | PDOCDIS ---
Discharge Instructions DIAGNOSIS Discharge Diagnosis Neurogenic bladder CONDITION Patient Condition: Fair HOME CARE INSTRUCTIONS: Special Diet: 1800 ADA DIET ACTIVITY: Activity Restrictions: Slowly Increase Activity FOLLOW UP/APPOINTMENTS Follow-up Plan f/u own pcp 1 wk see [facility] gi or dr wu 2 wks f/u Dr Shannon in 2-3 weeks JULIAN STEPHEN MD Dec 11, 2016 09:41
[2016-12-11] MEDS ORDERED: QUESTRAN PO (09:47)
[2016-12-11] MEDS ORDERED: BETH25TA PO (09:47)
[2016-12-11] MEDS ORDERED: CIPR500T4 PO (09:47)
[2016-12-11] MEDS ORDERED: BENA20TA48 PO (09:47)
[2016-12-11 14:00] VITALS: BP 98/64; RESP 18
--- NOTE | 2016-12-11 17:09 | CONS ---
Date/Time of Note Date/Time of Note DATE: 12/11/16 TIME: 17:08 Assessment/Plan Assessment/Plan Additional Assessment/Plan IMPRESSION: 1. 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 Weight loss. 3. Anemia. 4. Multiple sclerosis. 5. Wheelchair bound. 6. Hypertension. 7. Diabetes mellitus. 8. Incontinence of urine PLAN: At this point, is to send stool for analysis. CAT scan has been done and we will review it. The patient had a colonoscopy 2 years ago that was negative. She definitely needs a capsule endoscopy to rule out Crohn's disease. Will send stool for calprotectin and IBD serology. This will do it as an outpatient. In the interim, the patient will be placed on Questran for diarrhea., Urecholine for incontinence Questran, patient does not like Questran Consultation Date/Type/Reason Admit Date/Time Nov 30, 2016 at 13:33 Type of Consultation: Urology Referring Provider: MONA HARRIS MD 24 HR Interval Summary Free Text/Dictation Patient complains of bladder spasm Diarrhea reduced Exam/Review of Systems Vital Signs Vitals Vital Signs Date Time Temp Pulse Resp B/P Pulse Ox O2 Delivery O2 Flow Rate FiO2 12/11/16 14:00 98.7 97 18 98/64 99 12/10/16 21:13 Room Air Intake and Output 12/10/16 12/10/16 12/11/16 15:00 23:00 07:00 Intake Total 800 ml Output Total 1100 ml Balance -300 ml Exam Constitutional: alert, oriented, well developed Psych: nl mood/affect, no complaints Head: atraumatic, normocephalic Eyes: EOMI, PERRL, nl conjunctiva, nl lids, nl sclera ENMT: nl external ears & nose, nl lips & teeth, nl nasal mucosa & septum Neck: non-tender, supple Respiratory: clear to auscultation, normal air movement Cardiovascular: nl pulses, regular rate and rhythm Gastrointestinal: nl liver, spleen, non-tender, soft Musculoskeletal: nl extremities to inspection, nl gait and stance Extremities: normal pulses 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, nl mental status, nl speech, nl strength Skin: nl turgor, No rash or lesions Lymph: nl lymph nodes Results Result Diagram: 12/07/16 0438 12/11/16 0450 Results 24 hrs Laboratory Tests Test 12/10/16 17:52 12/10/16 21:24 12/11/16 02:06 12/11/16 04:50 Bedside Glucose 215 231 H 234 H Sodium Level 136 Potassium Level 4.7 Chloride Level 102 Carbon Dioxide Level 25 Anion Gap 14 Blood Urea Nitrogen 26 H Creatinine 0.76 Glucose Level 234 H Calcium Level 8.6 Test 12/11/16 08:20 12/11/16 12:04 Bedside Glucose 239 H 241 H Medications Medications Current Medications Acetaminophen (Tylenol Tab) 650 mg Q6H PRN PO PAIN AND OR ELEVATED TEMP Last administered on 12/11/16 03:17; Admin Dose 650 MG; Start 11/30/16 at 15:00 Diagnostic Test (Pha) (Accu-Chek) 1 ea 02 XX Last administered on 12/11/16 02 :07; Admin Dose 1 EA; Start 12/01/16 at 02:00 Phenytoin (Dilantin) 100 mg TID PO Last administered on 12/11/16 12:31; Admin Dose 100 MG; Start 11/30/16 at 21:00 Miscellaneous Information 1 ea NOTE XX ; Start 11/30/16 at 16:00 Glucose (Glutose) 15 gm Q15M PRN PO DECREASED GLUCOSE; Start 11/30/16 at 16:00 Glucose (Glutose) 22.5 gm Q15M PRN PO DECREASED GLUCOSE; Start 11/30/16 at 16: 00 Dextrose (D50w Syringe) 25 ml Q15M PRN IV DECREASED GLUCOSE; Start 11/30/16 at 16:00 Dextrose (D50w Syringe) 50 ml Q15M PRN IV DECREASED GLUCOSE; Start 11/30/16 at 16:00 Glucagon (Glucagen) 1 mg Q15M PRN IM DECREASED GLUCOSE; Start 11/30/16 at 16:00 Glucose (Glutose) 15 gm Q15M PRN BUCCAL DECREASED GLUCOSE Last administered on 12/04/16 02:37; Admin Dose 15 GM; Start 11/30/16 at 16:00 IV Flush (NS 10 ml) 10 ml PRN PRN IV IV PROTOCOL; Start 11/30/16 at 19:30 Sertraline HCl (Zoloft) 25 mg DAILY PO Last administered on 12/11/16 08:55; Admin Dose 25 MG; Start 12/01/16 at 09:00 Gabapentin (Neurontin) 200 mg HS PO Last administered on 12/10/16 21:31; Admin Dose 200 MG; Start 12/01/16 at 21:00 Aripiprazole (Abilify) 5 mg DAILY PO Last administered on 12/11/16 08:55; Admin Dose 5 MG; Start 12/01/16 at 09:00 Aspirin (Halfprin) 81 mg DAILY PO Last administered on 12/11/16 08:55; Admin Dose 81 MG; Start 12/01/16 at 09:00 Bisacodyl (Dulcolax) 10 mg BID PO Last administered on 12/11/16 08:55; Admin Dose 10 MG; Start 12/01/16 at 09:00 Cyclobenzaprine HCl (Flexeril) 10 mg DAILY PO Last administered on 12/11/16 08:54; Admin Dose 10 MG; Start 12/01/16 at 09:00 Mirtazapine (Remeron) 30 mg DAILY PO Last administered on 12/11/16 08:54; Admin Dose 30 MG; Start 12/01/16 at 09:00 Enoxaparin Sodium (Lovenox) 40 mg DAILY SC Last administered on 12/11/16 08: 57; Admin Dose 40 MG; Start 12/02/16 at 09:00 Pantoprazole (Protonix Tab) 40 mg DAILY@06 PO Last administered on 12/11/16 06:11; Admin Dose 40 MG; Start 12/03/16 at 06:00 Cholestyramine Resin (Questran) 1 pkt TID PO Last administered on 12/11/16 12 :32; Admin Dose 1 PKT; Start 12/05/16 at 21:00 Bethanechol Chloride (Urecholine) 25 mg TID PO Last administered on 12/11/16 12:31; Admin Dose 25 MG; Start 12/07/16 at 09:00 Ciprofloxacin (Cipro) 500 mg BID@18 PO Last administered on 12/11/16 06:10 ; Admin Dose 500 MG; Start 12/07/16 at 08:16 Clonidine (Catapres) 0.1 mg Q6H PRN PO ELEVATED BLOOD PRESSURE Last administered on 12/11/16 03:16; Admin Dose 0.1 MG; Start 12/09/16 at 22:30 Benazepril HCl (Lotensin) 20 mg BID PO Last administered on 12/11/16 08:54; Admin Dose 20 MG; Start 12/10/16 at 21:00 Insulin Glargine (Lantus) 5 unit BID SC Last administered on 12/11/16 08:58; Admin Dose 5 UNIT; Start 12/10/16 at 21:00 Oxycodone/ Acetaminophen (Percocet (5/ 325)) 1 tab Q6H PRN PO PAIN LEVEL 1-5; Start 12/11/16 at 06:00 Oxycodone/ Acetaminophen (Percocet (5/ 325)) 2 tab Q6H PRN PO PAIN LEVEL 6-10 Last administered on 12/11/16 12:32; Admin Dose 2 TAB; Start 12/11/16 at 06: 00 SHAHLA PAULINO MD Dec 11, 2016 17:09
--- NOTE | 2016-12-11 17:11 | RADRPT ---
PROCEDURE: US right lower extremity veins. CLINICAL INDICATION: Right leg pain and swelling. TECHNIQUE: Multiple longitudinal and transverse images of the right lower extremity veins were obt ained with krause scale and color Doppler imaging. The common femoral vein, femoral vein, and poplitea l vein were evaluated. 2D grayscale measurements with compression sonography, pulsed Doppler, color Doppler, and pulsed Doppler with augmentation. COMPARISON: Bilateral lower extremity venous Doppler dated 01/19/2015 which demonstrated acute peggy p venous thrombosis of the right femoral vein. FINDINGS: The right common femoral vein demonstrates normal flow and compressibility. There is partial marlen sibility of the right femoral vein consistent with chronic deep venous thrombosis with recanalizatio n. The right popliteal vein also demonstrates partial compressibility. IMPRESSION: 1. Normal right common femoral vein. 2. Partial compressibility of the right femoral vein and right popliteal vein consistent with chron ic deep venous thrombosis with recanalization. RPTAT: QQ .Leobardo Rai MD, Date Time Electronically viewed and signed by .Leobardo Rai MD, on 12/11/2016 17:10 .R/
[2016-12-11 20:00] VITALS: BP 113/63; PULSE 101; RESP 20
[2016-12-11] MEDS ORDERED: WARFARIN 5 MG TAB PO ONE (20:00)
[2016-12-11] MEDS: GABAPENTIN 100 MG CAP PO SCH (20:44)
[2016-12-11] MEDS: APIXABAN 5 MG TABLET PO SCH (20:45)
[2016-12-12] MEDS: ACCU-CHEK XX SCH (02:00)
[2016-12-12 03:16] VITALS: BP 100/75; RESP 20
[2016-12-12 05:40] LABS: INR 0.94; PROTIME 12.6 Sec (12.2-14.2)
[2016-12-12] MEDS: PANTOPRAZOLE (EC) 40 MG TAB PO SCH (05:52)
[2016-12-12] MEDS: CIPROFLOXACIN 500 MG TAB PO SCH (05:52)
[2016-12-12 07:59] VITALS: BP 127/75; RESP 20
[2016-12-12] MEDS: INSULIN GLARGINE [LANtus] 3 ML PEN SC SCH (08:22)
[2016-12-12] MEDS: INSULIN ASPART [NOVOLOG] 3 ML PEN SC SCH (08:22)
[2016-12-12] MEDS: MIRTAZAPINE 15 MG TAB PO SCH (08:25)
[2016-12-12] MEDS: SERTRALINE 50 MG TAB PO SCH (08:25)
[2016-12-12] MEDS: ARIPIPRAZOLE 5 MG TAB PO SCH (08:26)
[2016-12-12] MEDS: APIXABAN 5 MG TABLET PO SCH (08:26)
[2016-12-12] MEDS: PHENYTOIN 100 MG CAP PO SCH (08:26)
[2016-12-12] MEDS: CYCLOBENZAPRINE 10 MG TAB PO SCH (08:26)
[2016-12-12] MEDS: BISACODYL (EC) 5 MG TAB PO SCH (08:27)
[2016-12-12] MEDS: ASPIRIN (EC) 81 MG TAB PO SCH (08:28)
[2016-12-12] MEDS: CHOLESTYRAMINE 4 GM PACKET PO SCH (08:28)
[2016-12-12] MEDS: BETHANECHOL 25 MG TAB PO SCH (08:28)
[2016-12-12] MEDS: BENAZEPRIL 20 MG TAB PO SCH (08:28)
[2016-12-12] MEDS: OXYCODONE/ACETAMINOPHEN (5/325) TAB PO PRN (09:34)
== END 2016-12-12 10:26 | disposition home health service (06) | DRG 392 ==
LOC: MS1 13:33
PROVIDERS: ADMIT Internal Medicine Nephrology; ATTEND Internal Medicine Nephrology
PROC: 02HV33Z Insertion of Infusion Device into Superior Vena Cava, Percutaneous Approach (ICD-10-PCS; principal; 2016-12-11)
DX: K52.9 Noninfective gastroenteritis and colitis, unspecified (principal); N17.9 Acute kidney failure, unspecified; G35 Multiple sclerosis; N13.30 Unspecified hydronephrosis; E87.1 Hypo-osmolality and hyponatremia; E11.9 Type 2 diabetes mellitus without complications; I10 Essential (primary) hypertension; D64.9 Anemia, unspecified; Z68.1 Body mass index [BMI] 19.9 or less, adult; R33.9 Retention of urine, unspecified; R19.7 Diarrhea, unspecified; R32 Unspecified urinary incontinence; R63.4 Abnormal weight loss; Z99.3 Dependence on wheelchair; Z79.4 Long term (current) use of insulin; Z79.82 Long term (current) use of aspirin; Z79.01 Long term (current) use of anticoagulants
CPT/HCPCS: 36569; 71010; 74176; 76937; 80048; 80053; 82962; 83036; 85025; 85610; 87075; 87086; 90686; 92610; 93971; 97162; 97166; A4310; J1170; J1650; J1815; J2270; J7030; J7042

== ENCOUNTER 2016-12-17 18:19 | Emergency (ER) | payer OTHER ==
[~2016-12-17] VITALS: Ht 162.6 cm; Wt 90.0 kg
[~2016-12-17 18:19] MED LIST changes: +BETH25TA PO; -BISA-57 PO; -CLIN-73 PO; +LANT3I SC; +QUESTRAN PO
[2016-12-17 18:28] VITALS: Ht 162.6 cm; Wt 90.0 kg
--- NOTE | 2016-12-17 20:15 | ERD ---
ER Documentation Chief Complaint Chief Complaint marcelo catheter problem HPI 41 year old female has a Marcelo catheter that was inserted 3 days ago after being discharged due to urinary retention and states that the catheter is slipping. She has not had any leakage, the bag is being felt fine but the area on the leg that is supposed to hold the tube is actually not sticking to her leg anymore and would like for this to be adjusted. The patient has not had any fevers, chills, vomiting or diarrhea. She has no medical complaints. ROS All systems reviewed and are negative except as per history of present illness. Medications Home Meds Active Scripts Cholestyramine* (Questran*) 1 Pkt Susp, 1 PKT PO TID for 30 Days, #60 Prov:JULIAN STEPHEN MD 12/11/16 Benazepril Hcl* (Benazepril Hcl*) 20 Mg Tablet, 20 MG PO BID for 30 Days, #60 TAB Prov:JULIAN STEPHEN MD 12/11/16 Bethanechol Chloride* (Bethanechol Chloride*) 25 Mg Tablet, 25 MG PO TID for 30 Days, #90 TAB Prov:JULIAN STEPHEN MD 12/11/16 Ciprofloxacin Hcl* (Ciprofloxacin Hcl*) 500 Mg Tablet, 500 MG PO BID@06,18 for 10 Days, #20 TAB Prov:JULIAN STEPHEN MD 12/11/16 Insulin Glargine* (Lantus*) 100 Unit/Ml Soln, 5 UNIT SC DAILY@08 for 14 Days Prov:MONA HARRIS MD 12/04/16 Omeprazole* (Omeprazole*) 40 Mg Capsule.dr, 40 MG PO DAILY for 28 Days, CAP Prov:MONA HARRIS MD 12/04/16 Reported Medications Warfarin Sodium* (Coumadin*) 4 Mg Tablet, 8 MG PO DAILY, TAB 01/18/15 Albuterol Sulfate* (Proair HFA*) 8.5 Gm Hfa.aer.ad, 2 PUFF INH Q6H Y for WHEEZING AND SOB, INH 12/12/14 Simvastatin (Simvastatin) 20 Mg Tablet, 20 MG PO HS, TAB 12/12/14 Benazepril Hcl* (Benazepril Hcl*) 20 Mg Tablet, 20 MG PO DAILY, TAB 12/12/14 Cyclobenzaprine Hcl* (Cyclobenzaprine Hcl*) 10 Mg Tablet, 10 MG PO DAILY, TAB 01/10/14 Insulin Regular, Human* (Novolin R*) 100 U/Ml Vial, 0 SC SLIDING SCALE AC, VIAL 01/10/14 Aripiprazole* (Abilify*) 5 Mg Tab, 5 MG PO DAILY, TAB 01/10/14 Mirtazapine* (Mirtazapine*) 30 Mg Tablet, 30 MG PO DAILY, TAB 09/14/13 Phenytoin* Sodium Extended (Dilantin*) 100 Mg Capsule, 100 MG PO TID, CAP 09/09/13 Aspirin (Aspirin) 81 Mg Tablet.dr, 81 MG PO DAILY 11/04/12 Allergies Allergies: Coded Allergies: No Known Drug Allergy (Verified Allergy, Unknown, 07/30/15) PMhx/Soc History of Surgery: Yes Anesthesia Reaction: No Hx Neurological Disorder: No Hx Respiratory Disorders: No Hx Cardiac Disorders: Yes Hx Psychiatric Problems: Yes Hx Miscellaneous Medical Probl: Yes (MS) Hx Alcohol Use: No Hx Substance Use: No Hx Tobacco Use: No Smoking Status: Never smoker Physical Exam Vitals Vital Signs Date Time Temp Pulse Resp B/P Pulse Ox O2 Delivery O2 Flow Rate FiO2 12/17/16 18:28 98.8 82 20 121/86 98 Physical Exam General: Well-developed, well-nourished. The patient appears in no acute distress. HEENT: Head is normocephalic, atraumatic. No scleral icterus. Neck: Supple. Nontender. Lungs: Clear to auscultation. Normal air movement. Heart: Regular rate and rhythm. S1 and S2 are normal. No murmurs, gallops, or rubs. Abdomen: Nondistended. Soft. No masses. No tenderness. : Marcelo bag in place, without any leakage Extremities: No clubbing or cyanosis. Moving extremities x 4. No weakness. Neurologic: Alert and oriented 3. No focal deficits. Normal speech and gait. Skin: Normal turgor. No rash or lesions. Procedures/MDM 38-year-old female comes in with Marcelo bag problem, the catheter is working fine , and the bag is not leaking. She is complaining that the area came slipping because the adhesive is not working fully. This was cared for by the nursing staff. She is to return if she has any other problems or complaints. Patient's blood pressure was elevated (>120/80) but appears stable without evidence of hypertension emergency or urgency. The patient was counseled about the risks of hypertension and urged to pursue outpatient monitoring and therapy within a week with their primary care physician. Departure Diagnosis: Primary Impression: Marcelo catheter problem Condition: Good Patient Instructions: Marcelo Catheter, [place] Anne PA-C Dec 17, 2016 20:15
== END 2016-12-17 20:54 | disposition home or self-care (01) ==
LOC: FTE 18:19
DX: T83.098A Other mechanical complication of other urinary catheter, initial encounter (principal); Y73.3 Surgical instruments, materials and gastroenterology and urology devices (including sutures) associated with adverse incidents; Z79.01 Long term (current) use of anticoagulants; Z79.4 Long term (current) use of insulin; Z79.82 Long term (current) use of aspirin
CPT/HCPCS: 99282

== ENCOUNTER 2017-02-01 14:22 | Emergency (ER) | payer OTHER ==
[~2017-02-01] VITALS: Ht 185.4 cm; Wt 52.0 kg
[2017-02-01 14:27] VITALS: Ht 185.4 cm; Wt 52.0 kg
[2017-02-01] MEDS ORDERED: ONDANSETRON 4 MG INJ IV STA (16:28)
[2017-02-01] MEDS ORDERED: SOD CHLORIDE 0.9% 1,000 ML IV STA (16:28)
--- NOTE | 2017-02-01 16:41 | ERD ---
ER Documentation Chief Complaint Chief Complaint abdominal pain and diarrhea x 4 days HPI 41 year old female with a history of seizure disorder, noncompliance, hyperglycemia, anemia, history of multiple sclerosis, hypertension, dyslipidemia , wheelchair bound, DVT, history of left middle finger cellulitis, hypertension , was on Coumadin and kept on Dilantin comes in with a 3 day history of nausea, vomiting and she has had chronic diarrhea. She also has had mid abdominal pain. Patient has had diarrhea for a year and a half, she also has overflow incontinence secondary to neurogenic bladder from her MS. She has a Barboza catheter that has been in since the end of last month. She also has had diarrhea and has had multiple tests for this previously. She denies fevers or chills. ROS All systems reviewed and are negative except as per history of present illness. Medications Home Meds Active Scripts Ondansetron (Ondansetron Odt) 4 Mg Tab.rapdis, 4 MG PO Q6H Y for NAUSEA AND/OR VOMITING, #10 TAB Prov:CHEYENNE BARKER PA-C 02/01/17 Sulfamethoxazole/Trimethoprim* (Bactrim Ds* Tablet) 1 Each Tablet, 1 TAB PO BID , #19 TAB Prov:CHEYENNE BARKER PA-C 02/01/17 Cholestyramine* (Questran*) 1 Pkt Susp, 1 PKT PO TID for 30 Days, #60 Prov:JULIAN STEPHEN MD 12/11/16 Benazepril Hcl* (Benazepril Hcl*) 20 Mg Tablet, 20 MG PO BID for 30 Days, #60 TAB Prov:JULIAN STEPHEN MD 12/11/16 Bethanechol Chloride* (Bethanechol Chloride*) 25 Mg Tablet, 25 MG PO TID for 30 Days, #90 TAB Prov:JULIAN STEPHEN MD 12/11/16 Ciprofloxacin Hcl* (Ciprofloxacin Hcl*) 500 Mg Tablet, 500 MG PO BID@06,18 for 10 Days, #20 TAB Prov:JULIAN STEPHEN MD 12/11/16 Insulin Glargine* (Lantus*) 100 Unit/Ml Soln, 5 UNIT SC DAILY@08 for 14 Days Prov:MONA HARRIS MD 12/04/16 Omeprazole* (Omeprazole*) 40 Mg Capsule.dr, 40 MG PO DAILY for 28 Days, CAP Prov:MONA HARRIS MD 12/04/16 Reported Medications Warfarin Sodium* (Coumadin*) 4 Mg Tablet, 8 MG PO DAILY, TAB 01/18/15 Albuterol Sulfate* (Proair HFA*) 8.5 Gm Hfa.aer.ad, 2 PUFF INH Q6H Y for WHEEZING AND SOB, INH 12/12/14 Simvastatin (Simvastatin) 20 Mg Tablet, 20 MG PO HS, TAB 12/12/14 Benazepril Hcl* (Benazepril Hcl*) 20 Mg Tablet, 20 MG PO DAILY, TAB 12/12/14 Cyclobenzaprine Hcl* (Cyclobenzaprine Hcl*) 10 Mg Tablet, 10 MG PO DAILY, TAB 01/10/14 Insulin Regular, Human* (Novolin R*) 100 U/Ml Vial, 0 SC SLIDING SCALE AC, VIAL 01/10/14 Aripiprazole* (Abilify*) 5 Mg Tab, 5 MG PO DAILY, TAB 01/10/14 Mirtazapine* (Mirtazapine*) 30 Mg Tablet, 30 MG PO DAILY, TAB 09/14/13 Phenytoin* Sodium Extended (Dilantin*) 100 Mg Capsule, 100 MG PO TID, CAP 09/09/13 Aspirin (Aspirin) 81 Mg Tablet.dr, 81 MG PO DAILY 11/04/12 Allergies Allergies: Coded Allergies: No Known Drug Allergy (Verified Allergy, Unknown, 02/01/17) PMhx/Soc History of Surgery: Yes Anesthesia Reaction: No Hx Neurological Disorder: No Hx Respiratory Disorders: No Hx Cardiac Disorders: Yes Hx Psychiatric Problems: Yes Hx Miscellaneous Medical Probl: Yes (MS) Hx Alcohol Use: No Hx Substance Use: No Hx Tobacco Use: No Physical Exam Vitals Vital Signs Date Time Temp Pulse Resp B/P Pulse Ox O2 Delivery O2 Flow Rate FiO2 02/01/17 14:27 98.1 98 18 140/90 98 Physical Exam General: Well-developed, well-nourished. The patient appears in no acute distress. HEENT: Head is normocephalic, atraumatic. No scleral icterus. Neck: Supple. Nontender. Lungs: Clear to auscultation. Normal air movement. Heart: Regular rate and rhythm. S1 and S2 are normal. No murmurs, gallops, or rubs. Abdomen: Soft, patient has mid to lower abdominal tenderness nondistended. Bowel sounds are normoactive. Patient has a scar from previous cholecystectomy , hysterectomy. Extremities: No clubbing or cyanosis. Normal pulses. Moving extremities x 4. No weakness. Neurologic: Alert and oriented 3. No focal deficits. Skin: Normal turgor. No rash or lesions. Result Diagram: 02/01/17 1725 02/01/17 1725 Results 24 hrs Laboratory Tests Test 02/01/17 17:07 02/01/17 17:25 Urine Color YELLOW Urine Clarity CLOUDY Urine pH 6.0 Urine Specific [place] 1.010 Urine Ketones NEGATIVEmg/dL Urine Nitrite NEGATIVEmg/dL Urine Bilirubin NEGATIVEmg/dL Urine Urobilinogen NEGATIVEmg/dL Urine Leukocyte Esterase 3+Soham/ul Urine Microscopic RBC 10/HPF Urine Microscopic WBC 84/HPF Urine Bacteria MODERATE/HPF Urine Hemoglobin 1+mg/dL Urine Glucose NEGATIVEmg/dL Urine Total Protein 2+mg/dl White Blood Count 6.610^3/ul Red Blood Count 3.5510^6/ul Hemoglobin 9.4g/dl Hematocrit 29.3% Mean Corpuscular Volume 82.5fl Mean Corpuscular Hemoglobin 26.5pg Mean Corpuscular Hemoglobin Concent 32.1g/dl Red Cell Distribution Width 15.2% Platelet Count 50865^3/UL Mean Platelet Volume 11.6fl Neutrophils % 61.0% Lymphocytes % 31.7% Monocytes % 4.5% Eosinophils % 2.0% Basophils % 0.5% Nucleated Red Blood Cells % 0.0/100WBC Neutrophils # 4.010^3/ul Lymphocytes # 2.110^3/ul Monocytes # 0.310^3/ul Eosinophils # 0.110^3/ul Basophils # 0.010^3/ul Nucleated Red Blood Cells # 0.010^3/ul Sodium Level 138mmol/L Potassium Level 4.9mmol/L Chloride Level 110mmol/L Carbon Dioxide Level 22mmol/L Anion Gap 11 Blood Urea Nitrogen 10mg/dl Creatinine 0.74mg/dl Glucose Level 156mg/dl Calcium Level 9.1mg/dl Total Bilirubin 0.0mg/dl Direct Bilirubin 0.00mg/dl Indirect Bilirubin 0.0mg/dl Aspartate Amino Transf (AST/SGOT) 18IU/L Alanine Aminotransferase (ALT/SGPT) 34IU/L Alkaline Phosphatase 182IU/L Total Protein 7.1g/dl Albumin 3.2g/dl Globulin 3.90g/dl Albumin/Globulin Ratio 0.82 Lipase 26U/L Serum HCG, Qualitative NEGATIVE Current Medications Medications (Trade) Dose Ordered Sig/Nura Route PRN Reason Start Time Stop Time Status Last Admin Dose Admin Sodium Chloride (NS) 1,000 ml @ 1,000 mls/hr Q1H STAT IV 02/01/17 16:28 02/01/17 17:27 DC 02/01/17 17:27 Ondansetron HCl (Zofran Inj) 4 mg ONCE STAT IV 02/01/17 16:28 02/01/17 16:36 DC 02/01/17 17:27 Trimethoprim/ Sulfamethoxazole (Bactrim (Ds)) 1 tab ONCE ONCE PO 02/01/17 18:30 02/01/17 18:31 DIAGNOSTIC IMAGING REPORT Patient: KWAKU RILEY : 1975 Age: 41 Sex: F MR #: [id number] DOS: 02/01/17 1642 Ordering MD: CHEYENNE BARKER PA-C Location: [facility] Room/Bed: PROCEDURE: CT Abdomen and Pelvis without contrast. CLINICAL INDICATION: Abdominal pain. TECHNIQUE: CT scan of the abdomen and pelvis without contrast was performed on a multidetector high-resolution CT scanner. The patient was scanned without intravenous contrast. Coronal and sagittal reformatted images were obtained from the axial source images. Images were reviewed on a high-resolution PACS workstation. The total exam CTDI equals 5.71 mGy and the total exam DLP equals 312.41 mGy-cm. One or the following dose reduction techniques were used: -Automated exposure control. -Adjustment of the mA and/or KV according to patient's size. -Use of iterative reconstruction technique. DICOM images are available. COMPARISON: CT abdomen pelvis and 12/04/2016. FINDINGS: Limitation: Rotated noncontrast study with limited visualization of bowel. Lower thorax: Unremarkable. GI:. Unremarkable. Liver: Unremarkable. Gallbladder: Gallbladder is surgically absent without appreciable change in mild biliary tree dilatation. Pancreas: Unremarkable. Spleen: Unremarkablel Adrenals: Unremarkable. Kidneys: There has been a reduction in the amount of hydronephrosis. With minimal residual on the right and mild hydronephrosis remaining on the left. Bladder: Barboza catheter in the urinary bladder. Pelvic Organs: The patient is post hysterectomy. Skeleton: Normal for age. Other: There is mild diffuse anasarca. There is an IVC filter present. There are atherosclerotic calcifications. IMPRESSION: 1. Interval reduction in hydronephrosis, now minimal on the right and mild on the left. 2. Previous cholecystectomy. 3. Scattered fecal residue suggesting mild constipation. 4. IVC filter. 5. Atherosclerotic calcifications. RPTAT: [facility] Physician [place] Date Time Electronically viewed and signed by Gibran Valadez Physician on 02/01/2017 17: 25 Procedures/MDM 40-year-old female comes in with history of vomiting, diarrhea and abdominal pain for 3 days, the patient's urinalysis shows leukocyte esterase is positive as well as multiple white blood cells most consistent with UTI. The patient had a urine culture done in November 2016 that showed Klebsiella pneumonia and her urine culture showed sensitivity to Cipro as well as Bactrim. The patient was previously given Cipro and therefore will be given Bactrim at this time. Her white count is normal, there are no electrolyte abnormalities. Patient clinically does not show any signs of dehydration, neither does her lab work. No signs of sepsis, dehydration, bowel obstruction. A CT abdomen pelvis shows interval reduction of the hydronephrosis as well as evidence of constipation but no bowel obstruction. Patient's blood pressure was elevated (>120/80) but appears stable without evidence of hypertension emergency or urgency. The patient was counseled about the risks of hypertension and urged to pursue outpatient monitoring and therapy within a week with their primary care physician. Departure Diagnosis: Primary Impression: Abdominal pain Additional Impressions: Vomiting and diarrhea UTI (urinary tract infection) Multiple sclerosis Condition: CHEYENNE Stockton PA-C Feb 01, 2017 16:41
--- NOTE | 2017-02-01 17:26 | RADRPT ---
PROCEDURE: CT Abdomen and Pelvis without contrast. CLINICAL INDICATION: Abdominal pain. TECHNIQUE: CT scan of the abdomen and pelvis without contrast was performed on a multidetector hig h-resolution CT scanner. The patient was scanned without intravenous contrast. Coronal and sagittal reformatted images were obtained from the axial source images. Images were reviewed on a high-resol [employer] PACS workstation. The total exam CTDI equals 5.71 mGy and the total exam DLP equals 312.41 mGy -cm. One or the following dose reduction techniques were used: -Automated exposure control. -Adjustment of the mA and/or KV according to patient's size. -Use of iterative reconstruction technique. DICOM images are available. COMPARISON: CT abdomen pelvis and 12/04/2016. FINDINGS: Limitation: Rotated noncontrast study with limited visualization of bowel. Lower thorax: Unremarkable. GI:. Unremarkable. Liver: Unremarkable. Gallbladder: Gallbladder is surgically absent without appreciable change in mild biliary tree dilata tion. Pancreas: Unremarkable. Spleen: Unremarkablel Adrenals: Unremarkable. Kidneys: There has been a reduction in the amount of hydronephrosis. With minimal residual on the ri ght and mild hydronephrosis remaining on the left. Bladder: Barboza catheter in the urinary bladder. Pelvic Organs: The patient is post hysterectomy. Skeleton: Normal for age. Other: There is mild diffuse anasarca. There is an IVC filter present. There are atherosclerotic verona cifications. IMPRESSION: 1. Interval reduction in hydronephrosis, now minimal on the right and mild on the left. 2. Previous cholecystectomy. 3. Scattered fecal residue suggesting mild constipation. 4. IVC filter. 5. Atherosclerotic calcifications. RPTAT: [facility] Physician [place] Date Time Electronically viewed and signed by Physician [place] on 02/01/2017 17:25 SEGUN/
[2017-02-01 17:31] LABS: ADD UMIC YES; UR ASCORBIC ACID NEGATIVE (NEGATIVE); UR BACTERIA MODERATE /HPF (NONE SEEN); UR BILIRUBIN (Dip) NEGATIVE (NEGATIVE); UR BLOOD (Dip) 1+ mg/dL (NEGATIVE); UR CLARITY CLOUDY (CLEAR); UR COLOR YELLOW (YELLOW); UR GLUCOSE (Dip) NEGATIVE (NEGATIVE); UR KETONES (Dip) NEGATIVE (NEGATIVE); UR LEUKOCYTE ESTERASE (Dip) 3+ Leu/ul (NEGATIVE); UR NITRITE (Dip) NEGATIVE (NEGATIVE); UR RBC 10 /HPF (0-5); UR TOTAL PROTEIN (Dip) 2+ mg/dl (NEGATIVE); UR UROBILINOGEN (Dip) NEGATIVE (NEGATIVE)
[2017-02-01 17:31] LABS: BASOPHILS % 0.5 % (0.0-2.0); EOSINOPHILS # 0.1 10^3/ul (0.0-0.5); HEMATOCRIT 29.3 % (37.0-47.0); HEMOGLOBIN 9.4 g/dl (12.0-16.0); LYMPHOCYTES # 2.1 10^3/ul (0.8-2.9); LYMPHOCYTES % 31.7 % (15.0-51.0); MEAN CORPUSCULAR HEMOGLOBIN 26.5 pg (29.0-33.0); MEAN CORPUSCULAR HGB CONC 32.1 g/dl (32.0-37.0); MEAN CORPUSCULAR VOLUME 82.5 fl (82.0-101.0); MEAN PLATELET VOLUME 11.6 fl (7.4-10.4); MONOCYTE # 0.3 10^3/ul (0.3-0.9); MONOCYTES % 4.5 % (0.0-11.0); PLATELET COUNT 272 10^3/UL (140-415); RED BLOOD COUNT 3.55 10^6/ul (4.20-5.40); RED CELL DISTRIBUTION WIDTH 15.2 % (11.5-14.5); WHITE BLOOD COUNT 6.6 10^3/ul (4.8-10.8)
[2017-02-01 17:48] LABS: ALBUMIN 3.2 g/dl (3.3-4.9); ALBUMIN/GLOBULIN RATIO 0.82; CALCIUM 9.1 mg/dl (8.4-10.2); CREATININE 0.74 mg/dl (0.44-1.00); POTASSIUM 4.9 mmol/L (3.5-5.1); TOTAL PROTEIN 7.1 g/dl (6.1-8.1)
[2017-02-01] MEDS ORDERED: SULF1TAB31 PO (18:11)
[2017-02-01] MEDS ORDERED: ONDA4TAB14 PO (18:11)
[2017-02-01] MEDS ORDERED: TRIMETHOPRIM/SULFAMETHOX (DS) TAB PO ONE (18:30)
[2017-02-01 18:50] VITALS: BP 126/82; PULSE 76; RESP 16
== END 2017-02-01 19:00 | disposition home or self-care (01) ==
LOC: FTE 14:22
DX: N39.0 Urinary tract infection, site not specified (principal); R11.10 Vomiting, unspecified; R19.7 Diarrhea, unspecified; G35 Multiple sclerosis; I10 Essential (primary) hypertension; Z79.01 Long term (current) use of anticoagulants; Z79.4 Long term (current) use of insulin; Z79.82 Long term (current) use of aspirin
CPT/HCPCS: 74176; 80053; 81001; 83690; 84703; 85025; 87086; 96374; J2405; J7030; Z7502; Z7610